=== PATIENT | male | born 1955 | race Caucasian/White ===

== ENCOUNTER → 2017-01-08 | Outpatient (CLI) | payer OTHER ==
[~2017-01-08] MED LIST: ASPI-983 PO; ASPI-999 PO; ASPI325T32 PO; ATOR80TA76 PO; CARV12.52 PO; CARV25TA PO; CARV3.12 PO; FURO-125 PO; LISI-556 PO; LISI10TA2 PO; OMG1KC PO; POTA10TA PO; TICA90TA PO
--- OUTSIDE RECORDS SUMMARY | 2017-01-08 11:59 | XMS REPORT | Continuity of Care Document ---
Author Author [facility] Organization [facility] Address Unknown Phone Unavailable Allergies Active Description Code Type Severity Reaction Onset Reported/Identified Relationship to Patient Clinical Status Yes amoxicillin [id number] Drug Allergy Unknown N/A 03/06/2016 Yes clavulanic acid [id number] Drug Allergy Unknown N/A 03/06/2016 Medications Problems Date Dx Coded Attending Type Code Diagnosis Diagnosed By 03/07/2016 TRINO CHAHAL MD Ot E66.9 OBESITY, UNSPECIFIED 03/07/2016 TRINO CHAHAL MD, Ot E78.5 HYPERLIPIDEMIA, UNSPECIFIED 03/07/2016 TRINO CHAHAL MD Ot F17.210 NICOTINE DEPENDENCE, CIGARETTES, UNCOMPL 03/07/2016 TRINO CHAHAL MD Ot I10 ESSENTIAL (PRIMARY) HYPERTENSION 03/07/2016 TRINO CHAHAL MD Ot I21.19 STEMI INVOLVING OTH CORONARY ARTERY OF I 03/07/2016 TRINO CHAHAL MD Ot I25.10 ATHSCL HEART DISEASE OF [place] CORONARY 03/07/2016 TRINO CHAHAL MD Ot I25.5 ISCHEMIC CARDIOMYOPATHY 03/07/2016 TRINO CHAHAL MD Ot I44.1 ATRIOVENTRICULAR BLOCK, SECOND DEGREE 03/07/2016 TRINO CHAHAL MD Ot I50.21 ACUTE SYSTOLIC (CONGESTIVE) HEART FAILUR 03/07/2016 TRINO CHAHAL MD Ot R00.1 BRADYCARDIA, UNSPECIFIED 03/07/2016 TRINO CHAHAL MD Ot R57.0 CARDIOGENIC SHOCK 03/07/2016 TRINO CHAHAL MD Ot Z68.30 BODY MASS INDEX (BMI) 30.0-30.9, ADULT 03/08/2016 TRINO CHAHAL MD Ot E66.9 OBESITY, UNSPECIFIED 03/08/2016 TRINO CHAHAL MD Ot E78.5 HYPERLIPIDEMIA, UNSPECIFIED 03/08/2016 TRINO CHAHAL MD Ot F17.210 NICOTINE DEPENDENCE, CIGARETTES, UNCOMPL 03/08/2016 TRINO CHAHAL MD Ot I10 ESSENTIAL (PRIMARY) HYPERTENSION 03/08/2016 TRINO CHAHAL MD Ot I21.19 STEMI INVOLVING OTH CORONARY ARTERY OF I 03/08/2016 TRINO CHAHAL MD Ot I25.10 ATHSCL HEART DISEASE OF [place] CORONARY 03/08/2016 TRINO CHAHAL MD Ot I25.5 ISCHEMIC CARDIOMYOPATHY 03/08/2016 TRINO CHAHAL MD Ot I44.1 ATRIOVENTRICULAR BLOCK, SECOND DEGREE 03/08/2016 TRINO CHAHAL MD Ot I50.21 ACUTE SYSTOLIC (CONGESTIVE) HEART FAILUR 03/08/2016 TRINO CHAHAL MD Ot R00.1 BRADYCARDIA, UNSPECIFIED 03/08/2016 TRINO CHAHAL MD Ot R57.0 CARDIOGENIC SHOCK 03/08/2016 TRINO CHAHAL MD Ot Z68.30 BODY MASS INDEX (BMI) 30.0-30.9, ADULT 03/08/2016 TRINO CHAHAL MD Ot E66.9 OBESITY, UNSPECIFIED 03/08/2016 TRINO CHAHAL MD Ot E78.5 HYPERLIPIDEMIA, UNSPECIFIED 03/08/2016 TRINO CHAHAL MD Ot F17.210 NICOTINE DEPENDENCE, CIGARETTES, UNCOMPL 03/08/2016 TRINO CHAHAL MD Ot I10 ESSENTIAL (PRIMARY) HYPERTENSION 03/08/2016 TRINO CHAHAL MD Ot I21.19 STEMI INVOLVING OTH CORONARY ARTERY OF I 03/08/2016 TRINO CHAHAL MD Ot I25.10 ATHSCL HEART DISEASE OF [place] CORONARY 03/08/2016 TRINO CHAHAL MD Ot I25.5 ISCHEMIC CARDIOMYOPATHY 03/08/2016 TRINO CHAHAL MD Ot I44.1 ATRIOVENTRICULAR BLOCK, SECOND DEGREE 03/08/2016 TRINO CHAHAL MD Ot I50.21 ACUTE SYSTOLIC (CONGESTIVE) HEART FAILUR 03/08/2016 TRINO CHAHAL MD Ot R00.1 BRADYCARDIA, UNSPECIFIED 03/08/2016 TRINO CHAHAL MD Ot R57.0 CARDIOGENIC SHOCK 03/08/2016 TRINO CHAHAL MD Ot R57.8 OTHER SHOCK 03/08/2016 TRINO CHAHAL MD Ot Z68.30 BODY MASS INDEX (BMI) 30.0-30.9, ADULT Procedures Code Description Performed By Performed On [id number] 03/06/2016 [id number] 03/06/2016 [id number] 03/06/2016 [id number] 03/06/2016 Results Encounters ACCT No. Visit Date/Time Discharge Status Pt. Type Provider Facility Loc./Unit Complaint [id number] 03/06/2016 07:53:00 2015 11:15:00 DIS Inpatient FELA SMITH, TRINO Murrell [facility] STEMI
[2017-01-08 12:37] LABS: ALANINE AMINOTRANSFERASE 27 U/L (0-55); ALBUMIN 4.3 G/DL (3.2-4.5); ANION GAP 8 MMOL/L (5-14); ASPARTATE AMINO TRANSFERASE 17 U/L (5-34); BILIRUBIN,TOTAL 0.6 MG/DL (0.1-1.0); BLOOD UREA NITROGEN 14 MG/DL (7-18); BUN/CREATININE RATIO 18; CARBON DIOXIDE 27 MMOL/L (21-32); CHLORIDE 103 MMOL/L (98-107); CHOLESTEROL 200 MG/DL (< 200); CREATININE SERUM 0.79 MG/DL (0.60-1.30); DIRECT LDL 149 MG/DL (1-129); GFR ESTIMATED > 60; GLUCOSE 98 MG/DL (70-105); POTASSIUM 4.2 MMOL/L (3.6-5.0); SODIUM 138 MMOL/L (135-145); TOTAL PROTEIN 7.1 G/DL (6.4-8.2); TRIGLYCERIDES 94 MG/DL (<150); VLDL CHOLESTEROL 19 MG/DL (5-40)
--- NOTE | 2017-01-08 14:56 | ECHOCARDIOGRAPHY REPORT ---
PROCEDURE PHYSICIAN: TRINO CHAHAL DATE OF PROCEDURE: 01/08/2017 TWO DIMENSIONAL ECHOCARDIOGRAM REPORT PRIMARY PHYSICIAN: OTHER PHYSICIAN: REFERRING PHYSICIAN: ORDERING PHYSICIAN: INDICATION FOR THE PROCEDURE: Congestive heart failure MEASUREMENTS DERIVED VALUES LV DIAMETER (LAX) NORMALS NORMALS Diastolic 5.6 (3.6-5.2) Eject. Fract. 40% (60%+/-6%) Systolic (2.3-3.9) Diastolic Vol. % Shortening (0.22-0.42) Systolic Vol. Aortic Root IVS THICKNESS Diastolic 1.1 (0.6-1.1) LVPW THICKNESS Diastolic 1.1 (0.6-1.1) LA DIAMETER Systolic 3.8 (2.1-3.7) FINDINGS: 1. Technical quality is good. 2. The left ventricle is dilated, hypokinesia was noted more pronounced involving the mid to apical anterior wall, true apex, anterolateral wall. Systolic function is reduced. Estimated ejection fraction 40%. 3. The left atrium is in the upper normal limit in size. 4. The right atrium and right ventricle are normal in size. No clot or thrombus were seen within the right side. 5. Mitral valve is normal in morphology with mild mitral regurgitation noted by color Doppler flow. No mitral valve prolapse. No mitral valve stenosis. 6. Aortic valve is trileaflet with normal opening and closing pattern. No significant aortic stenosis or regurgitation was seen. 7. Tricuspid valve is normal in morphology with mild tricuspid regurgitation noted by color Doppler flow. Doppler across tricuspid valve estimated pulmonary artery pressure of 15+ right atrial pressure. 8. Pulmonic valve is functioning normally. 9. No pericardial effusion. CONCLUSION: 1. Normal left ventricular size with mild to moderate hypokinesia involving the mid to apical anterior wall, true apex, anterolateral wall. Systolic function is reduced. Estimated ejection fraction 40%. 2. Left atrium is in the upper normal limit in size. 3. Mild mitral and tricuspid regurgitation. 4. Estimated pulmonary artery pressure of 20 to 25 mmHg. Job ID: [id number] Dictated Date: 01/08/2017 13:30:14 Director Information Date: 01/08/2017 14:51:53 / lona
== END ==
LOC: CARD 11:55
PROVIDERS: ATTEND Internal Medicine Cardiovascular Disease
DX: I50.1 Left ventricular failure, unspecified (principal); I25.10 Atherosclerotic heart disease of native coronary artery without angina pectoris; E78.2 Mixed hyperlipidemia; I21.3 ST elevation (STEMI) myocardial infarction of unspecified site
CPT/HCPCS: 36415; 80053; 80061; 93306

== ENCOUNTER 2017-02-17 12:16 | Outpatient (RCR) | payer OTHER | END 2017-05-18 | disposition home or self-care (01) | LOC: CARD 12:16 | PROVIDERS: ATTEND Internal Medicine Cardiovascular Disease | DX: R00.1 Bradycardia, unspecified (principal); I25.10 Atherosclerotic heart disease of native coronary artery without angina pectoris | CPT/HCPCS: 93225; 93226 ==

== ENCOUNTER → 2017-03-19 | Outpatient (CLI) | payer OTHER ==
[~2017-03-19] MED LIST changes: +CATHETER FLUSH 10 ML SYR IV PRN
[2017-03-19 13:14] VITALS: BP 110/65
--- NOTE | 2017-03-21 08:09 | STRESS TEST ---
DATE OF SERVICE: 03/19/2017 PROCEDURE: Exercise Myoview stress test report. Baseline heart rate is 70. Baseline blood pressure is 110/65. Baseline EKG is sinus rhythm with no ischemic changes. SUMMARY: The patient was injected with 9.56 mCi of technetium-99 Myoview and the resting images were obtained. Then, the patient started exercising with the baseline heart rate, blood pressure and EKG as mentioned above. At minute 6 and 15 seconds, the patient was injected with 29.5 mCi of technetium-99 Myoview. The patient was able to exercise for a total of 7 minutes and 15 seconds on standard John protocol achieving maximum heart rate of 141, which is 87% of maximum expected heart rate. With peak exercise level, the blood pressure was 182/75, EKG was showing nondiagnostic changes. During recovery, heart rate and blood pressure returned to baseline. EKG returned to baseline. The resting and stress images were reviewed and compared in the short axis, horizontal long axis and vertical long axis views. Review of the images showed total infarction of mid to apical anterior wall, true apex, the whole inferior wall and the inferolateral wall with no reversibility. SSS is 42, SDS 1, TID value 0.95. On the gated images, the left ventricle is dilated with [id number] hypokinesia involving the mid to apical anterior wall, true apex, the whole inferior wall and inferolateral wall, calculated ejection fraction of 39%. CONCLUSIONS: 1. Fair exercise tolerance, a total of 7 minutes 15 seconds on standard John protocol that is a 10.1 METS, achieving 87% of maximum expected heart rate. 2. Hypertensive response to exercise, returned to baseline during recovery. 3. Total infarction of the mid to apical anterior wall, true apex, the whole inferior wall and inferolateral wall with no reversibility. 4. Prominent left ventricle with hypokinesia involving the mid to apical anterior wall, true apex, the whole inferior wall and inferolateral wall with calculated ejection fraction of 39%. Job ID: [id number] DocumentID: [id number] Dictated Date: 03/19/2017 16:50:13 Tube Bender Date: 03/20/2017 08:56:53 Dictated By: TRINO CHAHAL MD
== END ==
LOC: CARD 12:05
PROVIDERS: ATTEND Internal Medicine Cardiovascular Disease
DX: I25.10 Atherosclerotic heart disease of native coronary artery without angina pectoris (principal); R07.9 Chest pain, unspecified; E78.2 Mixed hyperlipidemia; I51.7 Cardiomegaly; R00.1 Bradycardia, unspecified
CPT/HCPCS: 78452; 93017

== ENCOUNTER → 2017-05-07 | Outpatient (CLI) | payer OTHER ==
[~2017-05-07] MED LIST changes: -CATHETER FLUSH 10 ML SYR IV PRN
[2017-05-07 11:34] LABS: ALBUMIN 4.4 GM/DL (3.2-4.5); BILIRUBIN,DIRECT 0.3 MG/DL (0.0-0.3); BILIRUBIN,INDIRECT 0.4 MG/DL; BILIRUBIN,TOTAL 0.7 MG/DL (0.1-1.0); ICTERUS 0.7 (-100-1.9); TOTAL PROTEIN 7.6 GM/DL (6.4-8.2)
== END ==
LOC: LAB 10:57
PROVIDERS: ATTEND Physician Assistant
DX: E78.2 Mixed hyperlipidemia (principal)
CPT/HCPCS: 36415; 80061; 80076

== ENCOUNTER → 2017-12-15 | Outpatient (CLI) | payer SELFPAY ==
[2017-12-15 15:28] LABS: ALANINE AMINOTRANSFERASE 20 U/L (0-55); ALBUMIN 4.3 GM/DL (3.2-4.5); ALKALINE PHOSPHATASE 67 U/L (40-136); BILIRUBIN,TOTAL 0.7 MG/DL (0.1-1.0); BUN/CREATININE RATIO 18; CALCIUM 9.9 MG/DL (8.5-10.1); CARBON DIOXIDE 28 MMOL/L (21-32); CHLORIDE 100 MMOL/L (98-107); CHOLESTEROL 138 MG/DL (< 200); CREATININE SERUM 0.83 MG/DL (0.60-1.30); GFR ESTIMATED > 60; GLUCOSE 102 MG/DL (70-105); HDL CHOLESTEROL 34 MG/DL (40-60); POTASSIUM 4.4 MMOL/L (3.6-5.0); SODIUM 138 MMOL/L (135-145); TOTAL PROTEIN 7.8 GM/DL (6.4-8.2); TRIGLYCERIDES 121 MG/DL (<150); VLDL CHOLESTEROL 24 MG/DL (5-40)
== END ==
LOC: LAB 14:45
PROVIDERS: ATTEND Family Medicine
DX: I25.10 Atherosclerotic heart disease of native coronary artery without angina pectoris (principal); I50.9 Heart failure, unspecified; R07.9 Chest pain, unspecified; R06.09 Other forms of dyspnea; E78.2 Mixed hyperlipidemia; I34.0 Nonrheumatic mitral (valve) insufficiency; I07.1 Rheumatic tricuspid insufficiency
CPT/HCPCS: 36415; 80053; 80061

== ENCOUNTER 2019-09-09 21:55 | Emergency (ER) | payer SELFPAY ==
[~2019-09-09] VITALS: Ht 177.8 cm; Wt 96.8 kg
[2019-09-09] MEDS ORDERED: NS IV 1000 ML 1,000 ML IV ONE (22:12)
[2019-09-09 22:18] LABS: BASOPHILS % (AUTO) 0 % (0-10); EOSINOPHILS # (AUTO) 0.2 10^3/uL (0.0-0.3); EOSINOPHILS % (AUTO) 1 % (0-10); HEMATOCRIT 43 % (40-54); HEMOGLOBIN 14.4 G/DL (13.3-17.7); LYMPHOCYTES # (AUTO) 1.5 X 10^3 (1.0-4.0); LYMPHOCYTES % (AUTO) 11 % (12-44); MEAN CORPUSCULAR HEMOGLOBIN 30 PG (25-34); MEAN CORPUSCULAR HGB CONC 34 G/DL (32-36); MEAN CORPUSCULAR VOLUME 87 FL (80-99); MEAN PLATELET VOLUME 9.6 FL (7.4-10.4); MONOCYTES # (AUTO) 1.2 X 10^3 (0.0-1.0); MONOCYTES % (AUTO) 9 % (0-12); NEUTROPHILS # (AUTO) 10.6 X 10^3 (1.8-7.8); NEUTROPHILS % (AUTO) 79 % (42-75); PLATELET COUNT 320 10^3/uL (130-400); RED CELL DISTRIBUTION WIDTH 13.3 % (10.0-14.5); WHITE BLOOD COUNT 13.5 10^3/uL (4.3-11.0)
[2019-09-09 22:28] LABS: BILIRUBIN,URINE NEGATIVE (NEGATIVE); COLOR,URINE YELLOW; GLUCOSE, URINE (UA) NEGATIVE (NEGATIVE); KETONES,URINE NEGATIVE (NEGATIVE); LEUKOCYTE ESTERASE ,URINE 1+ (NEGATIVE); NITRITE,URINE NEGATIVE (NEGATIVE); PH,URINE 5 (5-9); PROTEIN,URINE 2+ (NEGATIVE)
[2019-09-09 22:37] LABS: ALANINE AMINOTRANSFERASE 22 U/L (0-55); ALBUMIN 3.6 GM/DL (3.2-4.5); ALKALINE PHOSPHATASE 121 U/L (40-136); BILIRUBIN,TOTAL 0.9 MG/DL (0.1-1.0); BUN/CREATININE RATIO 13; CALCIUM 9.2 MG/DL (8.5-10.1); CARBON DIOXIDE 23 MMOL/L (21-32); CHLORIDE 98 MMOL/L (98-107); CREATININE SERUM 0.84 MG/DL (0.60-1.30); GFR ESTIMATED > 60; GLUCOSE 104 MG/DL (70-105); LIPASE 20 U/L (8-78); MAGNESIUM 1.9 MG/DL (1.6-2.4); POTASSIUM 3.9 MMOL/L (3.6-5.0); SODIUM 136 MMOL/L (135-145); TOTAL PROTEIN 7.5 GM/DL (6.4-8.2)
[2019-09-09 22:39] LABS: BACTERIA,URINE FEW /HPF
--- NOTE | 2019-09-09 22:39 | ED Abdominal Pain ---
General Chief Complaint: Abdominal/GI Problems Stated Complaint: LOWER ABD PAIN, PELVIC PAIN Nursing Triage Note: lower abdominal pain, n/v/d Sepsis Screen: No Definite Risk Source of Information: Patient Exam Limitations: No Limitations History of Present Illness Date Seen by Provider: Sep 09, 2019 Time Seen by Provider: 22:02 Initial Comments This 63-year-old gentleman presents to the emergency room with primary complaint of lower abdominal pain. He became ill about 12 days ago with nausea, vomiting, and diarrhea. A day or 2 later he developed chills and subjective fever. He has continued to have some abdominal discomfort since then. He has also noted a darker color to his urine. He is mildly tachycardic on arrival but afebrile. He states the pain is across the lower abdomen in the pelvic region and radiates a little bit generally to the scrotal region. He does have bilateral inguinal hernias and states the hernia on the right has increased in size over the past week or two due to vomiting. The hernias are easily reducible and not tender to palpation. He denies any respiratory symptoms. He has had normal bowel movements the past 2 days. He denies any hematochezia. He denies dysuria or hematuria or significant hesitancy. He is taking probiotics and ibuprofen to control his symptoms. Allergies and Home Medications Allergies Coded Allergies: amoxicillin (Verified Allergy, Unknown, 03/06/16) clavulanic acid (Verified Allergy, Unknown, 03/06/16) ticagrelor (Verified Allergy, Unknown, 09/09/19) Home Medications Aspirin 81 Mg Tablet.dr, 81 MG PO DAILY Prescribed by: TRINO CHAHAL on 03/08/16926 Atorvastatin Calcium 80 Mg Tablet, 80 MG PO HS Prescribed by: TRINO CHAHAL on 03/08/16926 Carvedilol 3.125 Mg Tablet, 3.125 MG PO BID Prescribed by: TRINO CHAHAL on 03/08/16926 Furosemide 20 Mg Tablet, 20 MG PO DAILY PRN PRN for edema Prescribed by: TRINO CHAHAL on 03/08/16926 Lisinopril 10 Mg Tablet, 5 MG PO DAILY, (Reported) LAST FILLED #90 8-17-15 TAKES 1/2 (10MG) TABLET [place] 3 Polyunsat Fatty Acids 1,000 Mg Cap, 1,000 MG PO BID WITH MEALS Prescribed by: TRINO CHAHAL on 03/08/16926 Potassium Chloride 10 Meq Tablet.er, 10 MEQ PO DAILY PRN for with lasix Prescribed by: TIRNO CHAHAL on 03/08/16926 Patient Home Medication List Home Medication List Reviewed: Yes Review of Systems Review of Systems Constitutional: see HPI EENTM: No Symptoms Reported Respiratory: No Symptoms Reported Cardiovascular: No Symptoms Reported Gastrointestinal: See HPI Genitourinary: See HPI Musculoskeletal: no symptoms reported Skin: no symptoms reported Psychiatric/Neurological: No Symptoms Reported Endocrine: No Symptoms Reported Hematologic/Lymphatic: No Symptoms Reported Past Mmgljph-Nvvuoq-Messzt Hx Patient Social History Alcohol Use: Occasionally Uses Recreational Drug Use: No Smoking Status: Current Everyday Smoker Type Used: Cigarettes 2nd Hand Smoke Exposure: Yes Recent Foreign Travel: No Contact w/Someone Who Travel: No Recent Infectious Disease Expo: No Recent Hopitalizations: No Physical Abuse: No Sexual Abuse: No Mistreated: No Fear: No Immunizations Up To Date Tetanus Booster (TDap): Unknown Seasonal Allergies Seasonal Allergies: No Past Medical History Surgeries: Yes Coronary Stent Respiratory: Yes COPD Cardiac: Yes Coronary Artery Disease, Heart Attack, High Cholesterol, Hypertension Neurological: No Reproductive Disorders: No Sexually Transmitted Disease: No HIV/AIDS: No Genitourinary: No Gastrointestinal: Yes Abdominal Hernia (bilateral inguinal hernias) Musculoskeletal: No Endocrine: No HEENT: No Cancer: No Psychosocial: No Integumentary: No Blood Disorders: No Adverse Reaction/Blood Tranf: No Family Medical History Diabetes mellitus G8 SISTER Myocardial infarction 19 FATHER 19 MOTHER Physical Exam Vital Signs Vital Signs - First Documented 09/09/19 21:59 Temp 35.8 Pulse 112 Resp 18 B/P (MAP) 151/88 (109) Pulse Ox 98 O2 Delivery Room Air Capillary Refill : Less Than 3 Seconds Height/Weight/BMI Height: 5'10.00" Weight: 213lbs. 8.0oz. 96.993722tn; 30.00 BMI Method:Stated General Appearance: WD/WN, no apparent distress HEENT: PERRL/EOMI, normal ENT inspection, other (mucous membranes somewhat dry) Neck: normal inspection Respiratory: lungs clear, normal breath sounds, no respiratory distress, no accessory muscle use Cardiovascular: no edema, no murmur, tachycardia Gastrointestinal: normal bowel sounds, soft; No distended; tenderness (minimal over the pelvic region), hernia (bilateral reducible nontender inguinal hernias, right greater than left) Extremities: normal inspection, no pedal edema Male: normal genitalia, testicular tenderness (minimal, bilateral. No scrotal edema, heat, or erythema. Testicles are normal to inspection) Neurologic/Psychiatric: bleacher lard II-XII nml as tested, no motor/sensory deficits, alert, normal mood/affect, oriented x 3 Skin: normal color, warm/dry Focused Exam Lactate Level 09/09/19 11:05: Lactic Acid Level 0.96 Lactic Acid Level Laboratory Tests Test 09/09/19 11:05 Lactic Acid Level 0.96 MMOL/L (0.50-2.00) Progress/Results/Core Measures Results/Orders Lab Results Laboratory Tests Test 09/09/19 11:05 09/09/19 22:00 09/09/19 22:18 Range/Units Lactic Acid Level 0.96 0.50-2.00 MMOL/L White Blood Count 13.5 H 4.3-11.0 10^3/uL Red Blood Count 4.88 4.35-5.85 10^6/uL Hemoglobin 14.4 13.3-17.7 G/DL Hematocrit 43 40-54 % Mean Corpuscular Volume 87 80-99 FL Mean Corpuscular Hemoglobin 30 25-34 PG Mean Corpuscular Hemoglobin Concent 34 32-36 G/DL Red Cell Distribution Width 13.3 10.0-14.5 % Platelet Count 320 130-400 10^3/uL Mean Platelet Volume 9.6 7.4-10.4 FL Neutrophils (%) (Auto) 79 H 42-75 % Lymphocytes (%) (Auto) 11 L 12-44 % Monocytes (%) (Auto) 9 0-12 % Eosinophils (%) (Auto) 1 0-10 % Basophils (%) (Auto) 0 0-10 % Neutrophils # (Auto) 10.6 H 1.8-7.8 X 10^3 Lymphocytes # (Auto) 1.5 1.0-4.0 X 10^3 Monocytes # (Auto) 1.2 H 0.0-1.0 X 10^3 Eosinophils # (Auto) 0.2 0.0-0.3 10^3/uL Basophils # (Auto) 0.0 0.0-0.1 10^3/uL Sodium Level 136 135-145 MMOL/L Potassium Level 3.9 3.6-5.0 MMOL/L Chloride Level 98 98-107 MMOL/L Carbon Dioxide Level 23 21-32 MMOL/L Anion Gap 15 H 5-14 MMOL/L Blood Urea Nitrogen 11 7-18 MG/DL Creatinine 0.84 0.60-1.30 MG/DL Estimat Glomerular Filtration Rate > 60 BUN/Creatinine Ratio 13 Glucose Level 104 70-105 MG/DL Calcium Level 9.2 8.5-10.1 MG/DL Corrected Calcium 9.5 8.5-10.1 MG/DL Magnesium Level 1.9 1.6-2.4 MG/DL Total Bilirubin 0.9 0.1-1.0 MG/DL Aspartate Amino Transf (AST/SGOT) 11 5-34 U/L Alanine Aminotransferase (ALT/SGPT) 22 0-55 U/L Alkaline Phosphatase 121 40-136 U/L C-Reactive Protein High Sensitivity 15.97 H 0.00-0.50 MG/DL Total Protein 7.5 6.4-8.2 GM/DL Albumin 3.6 3.2-4.5 GM/DL Lipase 20 8-78 U/L Urine Color YELLOW Urine Clarity SLIGHTLY CLOUDY Urine pH 5 5-9 Urine Specific [place] 1.020 1.016-1.022 Urine Protein 2+ H NEGATIVE Urine Glucose (UA) NEGATIVE NEGATIVE Urine Ketones NEGATIVE NEGATIVE Urine Nitrite NEGATIVE NEGATIVE Urine Bilirubin NEGATIVE NEGATIVE Urine Urobilinogen 1 NORMAL MG/DL Urine Leukocyte Esterase 1+ H NEGATIVE Urine RBC (Auto) 4+ H NEGATIVE Urine RBC 2-5 H /HPF Urine WBC 5-10 H /HPF Urine Crystals NONE /LPF Urine Bacteria FEW H /HPF Urine Casts PRESENT /LPF Urine Hyaline Casts 2-5 H /LPF Urine Mucus MODERATE H /LPF Urine Culture Indicated YES Micro Results Microbiology 09/09/19 Influenza Types A,B Antigen (JAVAD) - Final, Complete My Orders Orders - STEVE GRIMALDO MD Ua Culture If Indicated (09/09/19 22:02) Cbc With Automated Diff (09/09/19 22:12) Comprehensive Metabolic Panel (09/09/19 22:12) Hs C Reactive Protein (09/09/19 22:12) Lipase (09/09/19 22:12) Magnesium (09/09/19 22:12) Ed Iv/Invasive Line Start (09/09/19 22:12) Ns Iv 1000 Ml (Sodium Chloride 0.9%) (09/09/19 22:12) Influenza A And B Antigens (09/09/19 22:33) Urine Culture (09/09/19 22:18) Blood Culture (09/09/19 22:51) Vital Signs Adult Sepsis Patie Q15M (09/09/19 22:51) Remove Rings In Anticipation O (09/09/19 22:51) Lactic Acid Analyzer (09/09/19 22:51) Ct Abdomen/Pelvis W (09/09/19 22:59) Levofloxacin 750 Mg/150 Ml Iv (Levaquin (09/09/19 23:15) Iohexol Injection (Omnipaque 350 Mg/Ml 1 (09/09/19 23:15) Received Contrast (Hold Metformin- Contr (09/09/19 23:15) Ns (Ivpb) (Sodium Chloride 0.9% Ivpb Bag (09/09/19 23:15) Medications Given in ED Current Medications Medications Dose Ordered Sig/Cesar Route Start Time Stop Time Status Last Admin Dose Admin Iohexol 100 ml ONCE ONCE IV 09/09/19 23:15 09/09/19 23:16 DC 09/09/19 23:48 100 ML Levofloxacin/ Dextrose 150 ml @ 100 mls/hr ONCE ONCE IV 09/09/19 23:15 09/10/19 00:44 09/09/19 23:38 100 MLS/HR Sodium Chloride 100 ml ONCE ONCE IV 09/09/19 23:15 09/09/19 23:16 DC 09/09/19 23:49 80 ML Sodium Chloride 1,000 ml @ 0 mls/hr Q0M ONCE IV 09/09/19 22:12 09/09/19 22:13 DC 09/09/19 22:21 0 MLS/HR Vital Signs/I&O 09/09/19 21:59 Temp 35.8 Pulse 112 Resp 18 B/P (MAP) 151/88 (109) Pulse Ox 98 O2 Delivery Room Air 09/10/19 00:00 Intake Total 1000 ml Balance 1000 ml Blood Pressure Mean: 109 Progress Progress Note #1: Time: 22:39 Progress Note Patient was seen and examined. Lab work is in progress. A liter of IV fluid is being infused. He declines any treatment for pain or nausea at this time. Progress Note #2: Time: 23:01 Progress Note Patient is noted to have tachycardia, leukocytosis, and a significant elevation in CRP along with evidence of urinary tract infection. Patient therefore appears septic. We will draw blood cultures and lactic acid. Antibiotic therapy with Levaquin will be initiated due to patient's penicillin allergy. CT scan is being obtained for further evaluation. Patient has multiple variables that impact the decision for CT including possibility of ureteral stone, bilateral inguinal hernias, and persistent abdominal symptoms in the presence of possible sepsis. Patient and his were involved in the decision-making to proceed with CT scan. Progress Note #3: Time: 00:[address] scan was viewed by me and [employer] report reviewed. There was mural thickening and diverticuli noted in multiple colonic regions. This was consistent with colitis or diverticulitis. Additionally, there was a 1.4 cm nod ular area in the infrahilar region of the right lower lobe. Dedicated CT at some point was recommended. Patient would like to make sure his financial assistance and goes through before pursuing this further. He is to discuss it with his primary care provider. He is currently finishing Levaquin by IV route. He will additionally be given Flagyl orally. He was offered admission due to leukocytosis and elevated CRP in the presence of infection with UTI and probable diverticulitis. 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 However, he declines. He commits to returning to the hospital if symptoms worsen. Diagnostic Imaging Diagonstic Imaging: CT Plain Films/CT/US/NM/MRI: abdomen, pelvis Comments CT abdomen and pelvis was viewed by me. [employer] report reviewed. There is mural thickening and inflammatory changes around the left upper quadrant involving the splenic flexure of the colon as well as diverticular disease there is an additional area of inflammation around the sigmoid colon with mural thickening and marked diverticular disease. These findings suggest colitis and/or diverticulitis. There was a 1.4 cm nodular density in the right lower lobe infrahilar region. Dedicated CT chest is recommended. Departure Impression Primary Impression: Diverticulitis of intestine Qualified Codes: K57.32 - Diverticulitis of large intestine without perforation or abscess without bleeding Additional Impression: Urinary tract infection Qualified Codes: N39.0 - Urinary tract infection, site not specified Disposition: HOME, SELF-CARE Condition: Improved Departure-Patient Inst. Decision time for Depature: 00:25 Referrals: NAHUN DAMON MD (PCP/Family) Primary Care Physician Patient Instructions: Diverticulitis, Urinary Tract Infections in Adults Add. Discharge Instructions: Drink plenty of clear liquids and eat a low residual diet until symptoms resolve. Take Tylenol (acetaminophen) up to 1000 mg every 6 hours as needed for primary pain control. Add in ibuprofen for pain not controlled by Tylenol. Ibuprofen may be used for temporary relief of uncontrolled pain but should not be used for long-term treatment of pain. Return to care promptly if you have worsening symptoms including escalating pain, temperature over 100, uncontrolled vomiting or diarrhea, rectal bleeding, etc. Please follow-up with your primary care provider next week to review urine cultures and have a checkup. All discharge instructions reviewed with patient and/or family. Voiced understanding. Scripts Metronidazole (Flagyl) 500 Mg Tablet 500 MG PO TID, #20 TAB Prov: STEVE GRIMALDO MD 09/10/19 Ciprofloxacin HCl (Ciprofloxacin HCl) 500 Mg Tablet 500 MG PO BID, #14 TAB Prov: STEVE GRIMALDO MD 09/10/19 STEVE GRIMALDO MD Sep 09, 2019 22:39
[2019-09-09 22:41] LABS: CLARITY,URINE SLIGHTLY CLOUDY
[2019-09-09] MEDS: LEVOFLOXACIN 750 MG/150 ML IV 150 ML IV ONE ×2 (23:15→23:38)
[2019-09-09] MEDS ORDERED: NS 100 ML (IVPB) BAG IV ONE (23:15)
[2019-09-09] MEDS ORDERED: IOHEXOL 350 MG/ML 100 ML (OMNIPAQUE 350) VIAL IV ONE (23:15)
[2019-09-09] MEDS ORDERED: HOLD METFORMIN - RECEIVED CONTRAST 20 ML VIAL IV SCH (23:15)
[2019-09-10] MEDS ORDERED: metroNIDAZOLE 500 MG (FLAGYL) TAB PO ONE (00:30)
[2019-09-10] MEDS ORDERED: METR500T PO (00:31)
[2019-09-10] MEDS ORDERED: CIPR500T4 PO (00:31)
[2019-09-10 01:08] VITALS: BP 120/75
--- NOTE | 2019-09-10 07:27 | Diagnostic Imaging Report ---
PROCEDURE: CT abdomen and pelvis with contrast. TECHNIQUE: Multiple contiguous axial images were obtained through the abdomen and pelvis after administration of intravenous contrast. Auto Exposure Controls were utilized during the CT exam to meet ALARA standards for radiation dose reduction. INDICATION: Inferior abdominal pain. COMPARISON: None available. FINDINGS: There is mild subsegmental dependent atelectasis in both lower lobes. There is a partially visualized right infrahilar nodular density which measures at least 1.5 cm (image 1 series 2). A separate 9 mm nodular density is demonstrated just inferior to this (image 4 series 2) The visualized heart is normal in size. Coronary artery calcifications are demonstrated. The liver, spleen, pancreas, and adrenal glands are unremarkable. Gallbladder is contracted, limiting evaluation. No calcified gallstones or pericholecystic fluid is demonstrated. There is no biliary or pancreatic ductal dilatation demonstrated. The kidneys are symmetric in size and demonstrate normal enhancement. There is a partially exophytic low-attenuation lesion projecting inferiorly off of the lower pole of the left kidney which measures up to 1.6 cm in diameter. This demonstrates internal attenuation of approximately 30 Hounsfield units. There is a cyst in the anterior interpolar region of the left kidney which measures 1.3 cm. Additional subcentimeter foci of low-attenuation are too small to characterize but also likely represent cysts. There is no renal calculus or hydronephrosis on either side. The visualized ureters are normal. The stomach and duodenum are normal. The small bowel and colon are normal in course and caliber, without evidence of obstruction. There is moderate colonic diverticulosis. There is marked mural thickening involving the distal transverse and proximal descending colon in the region of the splenic flexure. There is moderate surrounding pericolonic inflammatory change in this region. There is also suggestion of mild mural thickening involving the proximal sigmoid colon, suggestion of mild pericolonic inflammatory change also noted in this region. There is no pneumoperitoneum. There is mild thickening of the left lateral conal fascia, likely representing trace fluid related to the colonic findings. There is no focal/loculated rim-enhancing collection. Mildly prominent scattered upper abdominal mesenteric and retroperitoneal lymph nodes are likely reactive in nature. No sandra lymphadenopathy. There is moderate calcified and noncalcified atherosclerotic plaque involving the abdominal aorta, without aneurysmal dilatation. There is no evidence of venous thrombosis. The bladder is normal. The prostate gland is normal in size. The abdominal wall is unremarkable. Multilevel degenerative changes involve the spine. No acute osseous abnormality is appreciated. IMPRESSION: Moderate mural thickening and pericolonic inflammatory change involving the splenic flexure. There is also suggestion of mild mural thickening involving the proximal sigmoid colon. There is moderate diverticular disease of the colon, and findings may reflect an acute diverticulitis or possibly an infectious/inflammatory colitis. There is no evidence of pneumoperitoneum or abscess formation. Exophytic low-attenuation projecting inferiorly off of the lower pole of left kidney. This does not measure simple fluid in attenuation and is indeterminate based on this exam. This may represent a complicated cyst given the appearance of an additional simple cyst and other likely simple cysts, however, is indeterminate. Further characterization of this finding is recommended with renal protocol CT/MRI on a nonemergent basis. Alternatively renal ultrasound may serve as an initial study to further characterize this finding. Pulmonary nodules in the right infrahilar region measuring 15 and 9 mm. Short interval followup with dedicated chest CT is recommended for further evaluation. Findings are in agreement with initial teleradiology report. Additional finding involving the left kidney was discussed with the [facility] followup nurse on 09/10/2019 at 7:25 a.m. Dictated by: Dictated on workstation # [id number]
== END 2019-09-10 01:08 | disposition home or self-care (01) ==
LOC: EDUNIT# 21:55 → ER 21:57
DX: K57.32 Diverticulitis of large intestine without perforation or abscess without bleeding (principal); N39.0 Urinary tract infection, site not specified; J44.9 Chronic obstructive pulmonary disease, unspecified; I10 Essential (primary) hypertension; E78.00 Pure hypercholesterolemia, unspecified; I25.2 Old myocardial infarction; I25.10 Atherosclerotic heart disease of native coronary artery without angina pectoris; F17.210 Nicotine dependence, cigarettes, uncomplicated; Z79.82 Long term (current) use of aspirin; Z95.5 Presence of coronary angioplasty implant and graft; Z88.0 Allergy status to penicillin; Z88.1 Allergy status to other antibiotic agents; Z88.8 Allergy status to other drugs, medicaments and biological substances; Z82.49 Family history of ischemic heart disease and other diseases of the circulatory system
CPT/HCPCS: 36415; 74177; 80053; 81000; 83605; 83690; 83735; 85025; 86141; 87040; 87077; 87088; 87186; 87804; 96365

== ENCOUNTER 2023-03-24 00:11 | Inpatient (IN) | payer MEDICARE ==
[~2023-03-24] VITALS: Ht 177.8 cm; Wt 95.3 kg
[~2023-03-24 00:11] MED LIST changes: +ASPI-1238 PO; -ASPI-983 PO; +CIPR500T5 PO; -LISI-556 PO; -LISI10TA2 PO; +LISI10TA25 PO; +LISI5TAB20 PO; +METR500T PO
[2023-03-24 00:29] LABS: BASOPHILS # (AUTO) 0.1 10^3/uL (0.0-0.1); BASOPHILS % (AUTO) 1 % (0-10); EOSINOPHILS # (AUTO) 0.1 10^3/uL (0.0-0.3); EOSINOPHILS % (AUTO) 1 % (0-10); HEMATOCRIT 48 % (40-54); HEMOGLOBIN 15.7 g/dL (13.3-17.7); LYMPHOCYTES # (AUTO) 3.1 10^3/uL (1.0-4.0); LYMPHOCYTES % (AUTO) 29 % (12-44); MEAN CORPUSCULAR HEMOGLOBIN 30 pg (25-34); MEAN CORPUSCULAR HGB CONC 33 g/dL (32-36); MEAN CORPUSCULAR VOLUME 90 fL (80-99); MEAN PLATELET VOLUME 10.5 fL (9.0-12.2); MONOCYTES % (AUTO) 10 % (0-12); NEUTROPHILS # (AUTO) 6.3 10^3/uL (1.8-7.8); NEUTROPHILS % (AUTO) 59 % (42-75); PLATELET COUNT 235 10^3/uL (130-400); WHITE BLOOD COUNT 10.7 10^3/uL (4.3-11.0)
[2023-03-24] MEDS ORDERED: ENOXAPARIN 100 MG/1 ML (LOVENOX) SYR SC ONE (00:30)
[2023-03-24] MEDS ORDERED: ASPIRIN 81 MG CHEW (CHILDREN'S ASA) PO ONE (00:30)
[2023-03-24] MEDS ORDERED: NS IV 1000 ML 1,000 ML IV SCH (00:30)
[2023-03-24] MEDS ORDERED: dilTIAZem DRIP PRE-MIX 125 ML IV SCH (00:30)
[2023-03-24 00:46] LABS: INR 1.2 (0.8-1.4); PROTHROMBIN TIME PATIENT 15.6 SEC (12.2-14.7)
[2023-03-24 00:53] LABS: ALBUMIN 4.3 GM/DL (3.2-4.5); BILIRUBIN,TOTAL 1.4 MG/DL (0.1-1.0); CALCIUM 9.1 MG/DL (8.5-10.1); CREATININE SERUM 0.96 MG/DL (0.60-1.30); TOTAL PROTEIN 7.3 GM/DL (6.4-8.2)
[2023-03-24 01:00] LABS: CREATINE KINASE MB 2.5 NG/ML (<6.6)
--- NOTE | 2023-03-24 01:11 | ED Cardiac General ---
History of Present Illness General Chief Complaint: Chest Pain Stated Complaint: SOB,LIGHT HEADED,RAPID HEART RATE,CP Nursing Triage Note: SOA X3 WEEKS, WORSE X4 DAYS, LEFT CHEST PRESSURE SINCE 1900. Source: patient (DIFFICULT AND LIMITED HISTORIAN), old records History of Present Illness Date Seen by Provider: March 24, 2023 Time Seen by Provider: 00:16 Initial Comments PT ARRIVES VIA POV FROM HOME WITH C/O CHEST PAIN -LEFT UPPER CHEST--STATES THIS IS THE SAME AREA THAT HE HAD PAIN WITH HIS PRIOR CO, BUT THIS PAIN IS NOT BAD. RATES PAIN 1-2 / 10 C/O RAPID HEART RATE--UP TO 160 C/O SHORTNESS OF BREATH SYMPTOMS BEGAN AROUND 1900 TONIGHT HE HAS BEEN FEELING SHORT OF BREATH X 3 WEEKS, WORSE X 4 DAYS HE HAS LASIX THAT HE TAKES "WHEN HE THINKS HE NEEDS IT"--HE HAS NOT TAKEN IT RECENTLY NO SIGNIFICANT LEG SWELLING PT HAS HAD PRIOR CO'S X 2. HE HAS HAD STENTING X 2 TO LAD AROUND 2005--NEVER FOLLOWED UP WITH ANYONE AFTER THAT. HE THEN HAD A STEMI WITH CARDIOGENIC SHOCK 03/06/2016 AND HAD STENTS X 2 TO LEFT CIRCUMFLEX. HE STATES HE HAD V-TACH WITH ONE OF THEM. HE DOES NOT HAVE A PACEMAKER OR DEFIBRILLATOR. HE IS NOT ON ANY ANTIARRHYTHMICS HE HAS NOT FOLLOWED UP WITH CARDIOLOGY IN 6 YEARS, PER HE HAS NOT FOLLOWED UP WITH [facility] OR ANY DR IN OVER 3 YEARS HE TAKES 81 MG ASPIRIN, AND NO OTHER BLOOD THINNERS. EXCEPT FOR OCCASIONAL LASIX USE, HE DOES NOT TAKE ANY OTHER MEDICATIONS. HE CONTINUES TO SMOKE 1 PPD. HE STATES HE HAS NEVER BEEN DX WITH COPD OR ASTHMA OR EMPHYSEMA, BUT STATES "I PROBABLY HAVE IT" HE HAS NEVER BEEN ON HOME O2 PT IS A FORMER RN. ASA po SUPERVISOR PREPRESS: No Allergies and Home Medications Allergies Coded Allergies: amoxicillin (Verified Allergy, Unknown, 03/06/16) clavulanic acid (Verified Allergy, Unknown, 03/06/16) ticagrelor (Verified Allergy, Unknown, 09/09/19) Patient Home Medication List Home Medication List Reviewed: Yes Aspirin (Aspirin EC) 81 Mg Tablet., 81 MG PO DAILY Prescribed by: TRINO CHAHAL on 03/08/16 0927 Atorvastatin Calcium (Atorvastatin Calcium) 80 Mg Tablet, 80 MG PO HS Prescribed by: TRINO CHAHAL on 03/08/16926 Carvedilol (Coreg) 3.125 Mg Tablet, 3.125 MG PO BID Prescribed by: TRINO CHAHAL on 03/08/16926 Ciprofloxacin HCl (Ciprofloxacin HCl) 500 Mg Tablet, 500 MG PO BID Prescribed by: STEVE CUMMINS on 09/10/1930 Furosemide (Lasix) 20 Mg Tablet, 20 MG PO DAILY PRN PRN for edema Prescribed by: TRINO CHAHAL on 03/08/16926 Lisinopril (Lisinopril) 10 Mg Tablet, 5 MG PO DAILY, (Reported) Entered as Reported by: MAYUR MCNAMARA on 03/06/16945 Metronidazole (Flagyl) 500 Mg Tablet, 500 MG PO TID Prescribed by: STEVE CUMMINS on 09/10/1930 [place] 3 Polyunsat Fatty Acids (Fish Oil 1,000 mg Capsule) 1,000 Mg Cap, 1,000 MG PO BID WITH MEALS Prescribed by: TRINO CHAHAL on 03/08/16926 Potassium Chloride (K-Tab ER) 10 Meq Tablet.er, 10 MEQ PO DAILY PRN for with lasix Prescribed by: TRINO CHAHAL on 03/08/16926 Review of Systems Review of Systems Constitutional: no symptoms reported Respiratory: See HPI, Orthopnea, Shortness of Air Cardiovascular: See HPI, Chest Pain, Irregular Heart Rate, Palpitations Gastrointestinal: No Symptoms Reported Genitourinary: No Symptoms Reported Musculoskeletal: no symptoms reported Skin: no symptoms reported Psychiatric/Neurological: No Symptoms Reported Endocrine: No Symptoms Reported Past Arpaofx-Klfoxq-Eebhuf Hx Patient Social History Tobacco Use?: Yes Tobacco type used: Cigarettes Smoking Status: Current Everyday Smoker Substance use?: No Alcohol Use?: No Pt feels they are or have been: No Immunizations Up To Date Tetanus Booster (TDap): Unknown First/Initial COVID19 Vaccinat: NA Seasonal Allergies Seasonal Allergies: No Past Medical History Surgery/Hospitalization HX: CO, STENTS, HLD, HTN Surgeries: Yes Cardiac, Coronary Stent Respiratory: Yes COPD Cardiac: Yes (STENTS X 4) Coronary Artery Disease, Heart Attack, High Cholesterol, Hypertension Neurological: No Reproductive Disorders: No Sexually Transmitted Disease: No HIV/AIDS: No Genitourinary: No Gastrointestinal: Yes Abdominal Hernia Musculoskeletal: No Endocrine: No HEENT: No Cancer: No Psychosocial: No Integumentary: No Blood Disorders: No Adverse Reaction/Blood Tranf: No Family Medical History Diabetes mellitus G8 SISTER Myocardial infarction 19 FATHER 19 MOTHER SOCIAL HISTORY: -SMOKES 1 PPD -DENIES ETOH USE -DENIES DRUG USE CO'S X 2 WITH CARDIAC CATHS X 2 FIRST CO AROUND 2006, WITH STENTS X 2 TO LAD SECOND CO / STEMI WITH CARDIOGENIC SHOCK 03/06/2016: CARDIAC CATH 03/06/[address] CHAHAL CONCLUSION: 1. Acute ST elevation myocardial infarction with heavy thrombus burden and total occlusion of the large dominant proper circumflex artery. Successful emergency angioplasty and then stent deployment using 2.5 x 20 mm Promus Premier stent, expanded to 2.65 mm with excellent results. Door to balloon time was 65 minutes. Door to needle time was 58 minutes. 2. Severe stenosis at the ostial and proximal left circumflex artery with deployment of 2.25 x 20 mm Promus Premier stent, expanded to 2.5 mm with excellent results. 3. Patent stents in the proximal and mid LAD, 50% ostial LAD stenosis. 4. Mild disease in a small, nondominant right coronary artery. 5. Dilated left ventricle with severe inferior wall hypokinesia with estimated ejection fraction is 40%. Physical Exam Vital Signs Vital Signs - First Documented 03/24/23 00:15 Temp 36.5 Pulse 135 Resp 22 B/P (MAP) 133/102 (112) Pulse Ox 93 O2 Delivery Nasal Cannula O2 Flow Rate 2.00 Capillary Refill : Less Than 3 Seconds Height, Weight, BMI Height: 5'10.00" Weight: 213lbs. 8.0oz. 96.252193hl; 31.00 BMI Method:Stated General Appearance: WD/WN, Other (PT LAUGHING AND TRYING TO MAKE JOKES, DIFFICULT TO KEEP ON SUBJECT. ) HEENT: PERRL/EOMI Neck: Normal Inspection Respiratory: No Accessory Muscle Use, No Respiratory Distress, Other (RALES IN BASES, AND EXPIRATORY WHEEZING BILATERALLY) Cardiovascular: No JVD, Normal Peripheral Pulses, Irregularly Irregular, Tachycardia Gastrointestinal: Non Tender, Soft Extremity: Normal Capillary Refill, Non Tender, No Calf Tenderness, Pedal Edema (TRACE BILATERALLY) Neurologic/Psychiatric: Alert, Oriented x3, No Motor/Sensory Deficits, Normal M ood/Affect, pre sales technical consultant II-XII Norm as Tested Skin: Normal Color, Warm/Dry Progress/Results/Core Measures Results/Orders Lab Results Laboratory Tests Test 03/24/23 00:17 03/24/23 01:27 Range/Units White Blood Count 10.7 4.3-11.0 10^3/uL Red Blood Count 5.30 4.30-5.52 10^6/uL Hemoglobin 15.7 13.3-17.7 g/dL Hematocrit 48 40-54 % Mean Corpuscular Volume 90 80-99 fL Mean Corpuscular Hemoglobin 30 25-34 pg Mean Corpuscular Hemoglobin Concent 33 32-36 g/dL Red Cell Distribution Width 13.7 10.0-14.5 % Platelet Count 235 130-400 10^3/uL Mean Platelet Volume 10.5 9.0-12.2 fL Immature Granulocyte % (Auto) 0 % Neutrophils (%) (Auto) 59 42-75 % Lymphocytes (%) (Auto) 29 12-44 % Monocytes (%) (Auto) 10 0-12 % Eosinophils (%) (Auto) 1 0-10 % Basophils (%) (Auto) 1 0-10 % Neutrophils # (Auto) 6.3 1.8-7.8 10^3/uL Lymphocytes # (Auto) 3.1 1.0-4.0 10^3/uL Monocytes # (Auto) 1.0 0.0-1.0 10^3/uL Eosinophils # (Auto) 0.1 0.0-0.3 10^3/uL Basophils # (Auto) 0.1 0.0-0.1 10^3/uL Immature Granulocyte # (Auto) 0.0 0.0-0.1 10^3/uL Prothrombin Time 15.6 H 12.2-14.7 SEC INR Comment 1.2 0.8-1.4 Activated Partial Thromboplast Time 29 24-35 SEC D-Dimer 2.94 H 0.00-0.49 UG/ML Sodium Level 139 135-145 MMOL/L Potassium Level 4.0 3.6-5.0 MMOL/L Chloride Level 103 98-107 MMOL/L Carbon Dioxide Level 24 21-32 MMOL/L Anion Gap 12 5-14 MMOL/L Blood Urea Nitrogen 27 H 7-18 MG/DL Creatinine 0.96 0.60-1.30 MG/DL Estimat Glomerular Filtration Rate 87 BUN/Creatinine Ratio 28 Glucose Level 144 H 70-105 MG/DL Calcium Level 9.1 8.5-10.1 MG/DL Corrected Calcium 8.9 8.5-10.1 MG/DL Magnesium Level 2.0 1.6-2.4 MG/DL Total Bilirubin 1.4 H 0.1-1.0 MG/DL Aspartate Amino Transf (AST/SGOT) 27 5-34 U/L Alanine Aminotransferase (ALT/SGPT) 50 0-55 U/L Alkaline Phosphatase 65 40-136 U/L Total Creatine Kinase 153 30-200 U/L Creatine Kinase MB 2.5 <6.6 NG/ML Myoglobin 72.1 10.0-92.0 NG/ML Troponin I 0.070 H <0.028 NG/ML B-Type Natriuretic Peptide 1005.0 H <100.0 PG/ML Total Protein 7.3 6.4-8.2 GM/DL Albumin 4.3 3.2-4.5 GM/DL Amylase Level 36 25-125 U/L Lipase 20 8-78 U/L Blood Gas Puncture Site RRAD Blood Gas Patient Temperature 36.5 Arterial Blood pH 7.35 L 7.37-7.43 Arterial Blood Partial Pressure CO2 42 35-45 MMHG Arterial Blood Partial Pressure O2 58 L 79-93 MMHG Arterial Blood HCO3 23 23-27 MMOL/L Arterial Blood Total CO2 24.0 21.0-31.0 MMOL/L Arterial Blood Oxygen Saturation 88 L 94-100 % Arterial Blood Base Excess -2.2 -2.5-2.5 MMOL/L Vladimir Test YES-POS Blood Gas Ventilator Setting NO Blood Gas Inspired Oxygen 4L My Orders Orders - MARY LOU AGUILAR DO Cbc With Automated Diff (03/24/23 00:16) Magnesium (03/24/23 00:16) Ekg Tracing (03/24/23 00:16) Comprehensive Metabolic Panel (03/24/23 00:16) Myoglobin Serum (03/24/23 00:16) Protime With Inr (03/24/23 00:16) Partial Thromboplastin Time (03/24/23 00:16) O2 (03/24/23 00:16) Monitor-Rhythm Ecg Trace Only (03/24/23 00:16) Ed Iv/Invasive Line Start (03/24/23 00:16) Creatine Kinase (03/24/23 00:16) Creatine Kinase Mb (03/24/23 00:16) Lipase (03/24/23 00:16) Amylase (03/24/23 00:16) Bnp Mariah (03/24/23 00:16) Fibrin Degradation Products (03/24/23 00:16) Troponin I [place] (03/24/23 00:16) Aspirin Chewable Tablet (Baby Aspirin Ch (03/24/23 00:30) Enoxaparin Injection (Lovenox Injection) (03/24/23 00:30) Diltiazem Drip Pre-Mix (Cardizem Drip Pr (03/24/23 00:30) Diltiazem Injection (Cardizem Injection) (03/24/23 00:30) Ed Iv/Invasive Line Start (03/24/23 00:29) Ns Iv 1000 Ml (Sodium Chloride 0.9%) (03/24/23 00:30) Chest 1 View, Ap/Pa Only (03/24/23 ) Ekg Tracing (03/24/23 00:57) Furosemide Injection (Lasix Injection) (03/24/23 01:30) Furosemide Injection (Lasix Injection) (03/24/23 01:21) Arterial Blood Gas (03/24/23 01:25) Medications Given in ED Current Medications Medications Dose Ordered Sig/Cesar Route Start Time Stop Time Status Last Admin Dose Admin Aspirin 324 mg ONCE ONCE PO 03/24/23 00:30 03/24/23 00:31 DC 03/24/23 00:30 324 MG Diltiazem HCl 20 mg ONCE ONCE IVP 03/24/23 00:30 03/24/23 00:31 DC 03/24/23 00:31 20 MG Enoxaparin Sodium 100 mg ONCE ONCE SC 03/24/23 00:30 03/24/23 00:31 DC 03/24/23 00:30 100 MG Furosemide 80 mg ONCE ONCE IVP 03/24/23 01:30 03/24/23 01:31 DC 03/24/23 01:22 80 MG Vital Signs/I&O 03/24/23 03/24/23 03/24/23 03/24/23 00:15 00:15 00:30 00:31 Temp 36.5 Pulse 135 131 133 Resp 22 B/P (MAP) 133/102 (112) 133/102 133/102 Pulse Ox 93 93 O2 Delivery Nasal Cannula Nasal Cannula O2 Flow Rate 2.00 2.00 03/24/23 01:38 Pulse 125 Pulse Ox 100 O2 Flow Rate 100.00 Blood Pressure Mean: 112 Progress Progress Note : Progress Note ON ARRIVAL: PT NOTED TO BE IN ATRIAL FIBRILLATION WITH RVR--RATE 130'150'S--ON ARRIVAL BP 120'S/100'S O2 SAT 90-92% ON ROOM AIR PLACED ON O2 AT 2L/NC AND SATS UP TO 93% GIVEN: -ASPIRIN -CARDIZEM BOLUS AND DRIP--HR DOWN TO AROUND 100, STILL IN ATRIAL FIBRILLATION -LOVENOX -LASIX PT WITH ELEVATED TROPONIN AND D-DIMER, CT CHEST ANGIOGRAM ORDERED. PT TAKEN TO RADIOLOGY DEPT, AND BECAME VERY ORTHOPNEIC AND VERY SHORT OF BREATH--UNABLE TO DO CT SCAN, AND PT BROUGHT BACK TO ER DEPT. PT NOW IN TRIPOD POSITION ON SIDE OF BED THEN STANDING ON SIDE OF BED, LEANING OVER BEDSIDE TABLE, VERY DYSPNEIC IN SIGNIFICANT RESPIRATORY DISTRESS, O2 UP TO 5L/NC AND SATS IN MID 80'S IMMEDIATELY PLACED ON BIPAP WITH IMMEDIATE AND SIGNIFICANT IMPROVEMENT. PT IS NO LONGER IN TRIPOD POSITION, AND IS ABLE TO SIT BACK ON BED PROPERLY, HIS RESPIRATIONS ARE NO LONGER LABORED, AND HIS O2 SATS IMMEDIATELY UP TO 99%. PT STATES HE FEELS MUCH BETTER. PT QUESTIONED ABOUT HIS CODE STATUS AND HE IS ADAMANT THAT HE DOES NOT WANT TO BE ON A VENTILATOR AND DOES NOT WANT CPR/RESUSCITATION. IS PRESENT AT THIS, AND SHE VERIFIES THIS. DISCUSSED TEST RESULTS, NEED FOR ADMIT AND PT IS AGREEABLE TO PLAN. REVIEWED PRIOR RECORDS, INCLUDING ER VISIT, ADMIT/H&P/CONSULTS/DISCHARGE SUMMARIES, TESTS/PROCEDURES. Initial ECG Impression Date: March 24, 2023 Initial ECG Impression Time: 00:23 Initial ECG Rate: 139 Initial ECG Rhythm: A Fib/Flutter Initial ECG Intervals GA--N/A QRS 132 QT/QTC 328/409 Initial ECG Impression: Atrial Fibrillation w/RVR (WITH RBBB, Q WAVES V1-V4) Initial ECG Comparisson: Changed (CHANGED FROM EKGS WITH STEMI 02/2016) Comment INTERPRETED BY ME EKG : EKG Time: 00:59 Rate: 105 Rhythm: A Fib/Flutter Intervals GA--N/A QRS 136 QT/QTC 385/446 ECG Impression: Atrial Fibrillation w/RVR (RBBB) Diagnostic Imaging Comments CXR--PENDING RADIOLOGIST REVIEW -CARDIOMEGALY WITH CHF Reviewed: Reviewed by Me Critical Care Note Critical Care Start Time: 00:16 Stop Time: 02:10 Total Time (minutes) 114 Progress SEE NOTES FOR DETAILS Departure Communication (Admissions) 0137--SPOKE WITH DR. PARRA, [employer], RECOMMENDATIONS NOTED. WILL ADMIT TO HOSPITALIST AND HE WILL SEE PT IN CONSULT 0143--SPOKE WITH DR. SANTOS, HOSPITALIST, ACCEPTS PT FOR ADMIT. 0150--REPORT TO E-ICU PHYSICIAN, DR. MONTOYA. Impression Primary Impression: New onset atrial fibrillation Additional Impressions: Atrial fibrillation with rapid ventricular response Chest pain Elevated troponin CHF (congestive heart failure) HTN (hypertension) Non-compliance Heavy smoker (more than 20 cigarettes per day) Acute respiratory failure Disposition: ADMITTED INPATIENT Condition: Improved Admissions Decision to Admit Reason: Admit from ER (General) Decision to Admit/Date: March 24, 2023 Time/Decision to Admit Time: 01:45 Departure-Patient Inst. Referrals: NO,LOCAL PHYSICIAN (PCP/Family) Primary Care Physician MARY LOU AGUILAR DO March 24, 2023 01:11
[2023-03-24] MEDS ORDERED: FUROSEMIDE 40 MG/4 ML INJ (LASIX) ONE (01:21)
[2023-03-24] MEDS ORDERED: FUROSEMIDE 40 MG/4 ML INJ (LASIX) IVP ONE (01:30)
[2023-03-24 01:32] LABS: ABG BASE EXCESS -2.2 MMOL/L (-2.5-2.5); ABG OXYGEN SATURATION 88 % (94-100); ABG PCO2 42 MMHG (35-45); ABG PH 7.35 (7.37-7.43); ABG PO2 58 MMHG (79-93); ALLENS TEST YES-POS; INSPIRED O2 4L; VENTILATOR NO
[2023-03-24 01:33] LABS: PATIENT TEMP 36.5
[2023-03-24 01:38] VITALS: BP 125/88
[2023-03-24 02:26] VITALS: BP 132/96
[2023-03-24 02:39] LABS: ABG OXYGEN SATURATION 99 % (94-100); ABG PCO2 48 MMHG (35-45); ABG PO2 118 MMHG (79-93); ABG TCO2 26.8 MMOL/L (21.0-31.0)
[2023-03-24 02:40] LABS: ALLENS TEST YES-POS; INSPIRED O2 70%; VENTILATOR NO
[2023-03-24 02:41] LABS: ABG PH 7.34 (7.37-7.43); PATIENT TEMP 36.2
[2023-03-24 03:10] VITALS: BP 133/102
[2023-03-24] MEDS ORDERED: RT-ALBUTEROL/IPRATROPIUM 3 ML (DUONEB) VIAL INH ONE (03:15)
[2023-03-24] MEDS ORDERED: ONDANSETRON 4 MG/2 ML (SDV) Z0FRAN IVP PRN (03:30)
[2023-03-24] MEDS ORDERED: morphine INJ 4 MG/ML 1 ML (VIAL/SYRINGE) IV PRN (03:30)
[2023-03-24] MEDS: dilTIAZem DRIP 125 MG/125 ML DRIP IV SCH ×2 (03:47→08:03)
--- NOTE | 2023-03-24 04:38 | Tele-ICU Progress Note ---
Progress Note 67M with CAD s/p MIx2, PCI x4 presented with CP. Pain was similar in nature to prior GA but less severe. Found to be in new afib with rates up to 160. Has had SOB x4 wks but did not come for eval until CP developed. Previously had GA in 2006 with stent to LAD x2. Did not follow up after that. Had STEMI with cardiogenic shock, stent to LCx x2 in 2016. Has not followed up with cardiology since 2016. Has not followed up with primary or any other MD in over 3 years. Takes only ASA 81 mg and lasix when he feels he needs it (none recently). 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 Was started on cardizem gtt for RVR, lovenox 100 mg and lasix 80 mg. Had marginal troponin elevation. Noted to have new RBBB, although last EKG was during STEMI. He was sent for CTA but had decomponsation with resp distress. BiPap initiated with significant clinical improvement. A/P: - hypoxia/SOB/resp distress: suspect cardiogenic. Appears of pulmonary vascular congestion on CXR. Appears relatively similar to last CXR in 2016, however he was having STEMI at that time. Unclear if this is a stable CXR or recurrence of pulm edema. Will need echo in AM. CTA in am as well, but is on empiric lovenox so no urgency. - afib: unclear whether this is afib with RVR causing resp distress or if this was hypoxia causing afib with RVR. Cardiology consulted. Current 91/61, HR 86. Cardizem has just been turned down from 15 to 10 due to low BP. Patient assessed via real-time audiovisual communication system. CCT 8 min Focused Exam Height, Weight, BMI Height: 5'10.00" Weight: 213lbs. 8.0oz. 96.759786yr; 30.24 BMI Method:Stated ZAHRA MONTOYA MD March 24, 2023 04:37
[2023-03-24] MEDS ORDERED: NS IV 500 ML 500 ML IV PRN (05:00)
[2023-03-24 05:10] LABS: BASOPHILS # (AUTO) 0.1 10^3/uL (0.0-0.1); BASOPHILS % (AUTO) 1 % (0-10); EOSINOPHILS # (AUTO) 0.1 10^3/uL (0.0-0.3); EOSINOPHILS % (AUTO) 1 % (0-10); HEMATOCRIT 45 % (40-54); HEMOGLOBIN 14.9 g/dL (13.3-17.7); LYMPHOCYTES # (AUTO) 2.3 10^3/uL (1.0-4.0); LYMPHOCYTES % (AUTO) 22 % (12-44); MEAN CORPUSCULAR HEMOGLOBIN 30 pg (25-34); MEAN CORPUSCULAR HGB CONC 33 g/dL (32-36); MEAN CORPUSCULAR VOLUME 90 fL (80-99); MEAN PLATELET VOLUME 11.3 fL (9.0-12.2); MONOCYTES # (AUTO) 0.8 10^3/uL (0.0-1.0); MONOCYTES % (AUTO) 7 % (0-12); NEUTROPHILS # (AUTO) 7.2 10^3/uL (1.8-7.8); NEUTROPHILS % (AUTO) 69 % (42-75); PLATELET COUNT 172 10^3/uL (130-400); WHITE BLOOD COUNT 10.5 10^3/uL (4.3-11.0)
[2023-03-24 05:16] LABS: POTASSIUM 3.8 MMOL/L (3.6-5.0)
[2023-03-24 05:18] LABS: CALCIUM 8.6 MG/DL (8.5-10.1)
[2023-03-24 05:19] LABS: TOTAL PROTEIN 7.1 GM/DL (6.4-8.2)
[2023-03-24 05:21] LABS: BILIRUBIN,TOTAL 1.5 MG/DL (0.1-1.0)
[2023-03-24 05:22] LABS: PHOSPHORUS 4.7 MG/DL (2.3-4.7)
[2023-03-24 05:23] LABS: CREATININE SERUM 0.86 MG/DL (0.60-1.30)
[2023-03-24 05:26] LABS: MAGNESIUM 1.9 MG/DL (1.6-2.4)
[2023-03-24] MEDS: CATHETER FLUSH 10 ML SYR IVP SCH ×3 (05:56→20:26)
[2023-03-24] MEDS ORDERED: KCL 20 MEQ TAB (K-DUR) PO SCH (06:00)
[2023-03-24] MEDS ORDERED: FUROSEMIDE 40 MG/4 ML INJ (LASIX) IV SCH (06:00)
[2023-03-24] MEDS: POTASSIUM CL 10MEQ/50ML IVPB 50 ML IV SCH (06:18)
[2023-03-24] MEDS: MAGNESIUM 1 GM/100 ML IVPB 100 ML IV SCH (06:19)
[2023-03-24] MEDS: KCL 20 MEQ TAB (K-DUR) PO SCH (06:19)
[2023-03-24] MEDS: ASPIRIN E.C. 81 MG (ECOTRIN) TAB PO SCH (08:03)
--- NOTE | 2023-03-24 08:06 | Diagnostic Imaging Report ---
EXAMINATION: Chest 1 view HISTORY: Chest pain. COMPARISON: 03/07/2016 FINDINGS: Heart is enlarged. There is moderate to severe pulmonary edema. No pleural effusion or pneumothorax. IMPRESSION: 1. Enlarged heart with moderate to severe pulmonary edema. Dictated by: Dictated on workstation # [id number]
[2023-03-24] MEDS: RT-ALBUTEROL/IPRATROPIUM 3 ML (DUONEB) VIAL INH SCH ×4 (09:37→21:44)
[2023-03-24] MEDS ORDERED: ASPI-1238 PO (12:41)
--- NOTE | 2023-03-24 12:57 | Consultation-Cardiology ---
HPI-Cardiology Cardiology Consultation: Date of Consultation 03/24/23 Time Seen by a Provider: 12:20 Date of Admission Attending Physician No,Local Physician Admitting Physician Admitting Physician: Eugenia Velásquez MD Attending Physician: Nidia Mercado MD Consulting Physician ERIKA PARRA MD, MA, FACP, FACC, FSCAI, CCDS HPI: Chief Complaint: Shortness of breath 67 yo man with increasing shortness of breath for several weeks that is more marked in the last 4-5 days, admitted to the [facility] on the evening fo 03/23/23 through the ER where he was found to have A Fib with RVR, CHF and elevated troponin. Currently feeling better. Has had vague chest discomfort since onset of symptoms: mild, pressure-like, associated with shortness of breath, present all the time, w/o aggravating or relieving factors, w/o radiation, not experienced before. Also has had an intermittent feeling or rapid, irreg heart beat. Notes leg swelling and abd distention. Denies fever or chills. Notes gen malaise Review of Systems-Cardiology Review of Systems Constitutional: malaise, tiredness; No weight loss, No weight gain Eyes: No vision change Ears/Nose/Throat: No ear discharge, No nasal drainage, No recent hearing loss Respiratory: As described under HPI Cardiovascular: As described under HPI Gastrointestinal: As described under HPI; No diarrhea, No nausea, No vomiting Genitourinary: No dysuria, No hematuria, No urine frequency changes Musculoskeletal: No back pain, No joint pain Skin: No rash, No ulcerations Psychiatric/Neurological: No focal weakness, No syncope Hematologic: No bleeding abnormalities [id number]-Rocfqt Hx Patient Social History Smoking Status: Current Everyday Smoker 2nd Hand Smoke Exposure: Yes Have you traveled recently?: No Alcohol Use?: No Pt feels they are or have been: No Tobacco type used: Cigarettes Immunizations Up To Date Tetanus Booster (TDap): Unknown Past Medical History PMH As described under Assessment. Family Medical History Family History: Diabetes mellitus G8 SISTER Myocardial infarction 19 FATHER 19 MOTHER Allergies and Home Medications Allergies Coded Allergies: amoxicillin (Verified Allergy, Unknown, 03/06/16) clavulanic acid (Verified Allergy, Unknown, 03/06/16) ticagrelor (Verified Allergy, Unknown, 09/09/19) Patient Home Medication List Home Medication List Reviewed: Yes Aspirin (Aspirin EC) 81 Mg Tablet.dr, 81 MG PO HS, (Reported) Entered as Reported by: LUISA LEE on 03/24/23 1241 Last Action: Reviewed Discontinued Medications Aspirin (Aspirin EC) 81 Mg Tablet.dr, 81 MG PO DAILY Discontinued Reason: No Longer Taking Prescribed by: TRINO CARTER on 03/08/16926 Last Action: Discontinued Atorvastatin Calcium (Atorvastatin Calcium) 80 Mg Tablet, 80 MG PO HS Discontinued Reason: No Longer Taking Prescribed by: TRINO CARTER on 03/08/16926 Last Action: Discontinued Carvedilol (Coreg) 3.125 Mg Tablet, 3.125 MG PO BID Discontinued Reason: No Longer Taking Prescribed by: TRINO CARTER on 03/08/16926 Last Action: Discontinued Ciprofloxacin HCl (Ciprofloxacin HCl) 500 Mg Tablet, 500 MG PO BID Discontinued Reason: No Longer Taking Prescribed by: STEVE CUMMINS on 09/10/1930 Last Action: Discontinued Furosemide (Lasix) 20 Mg Tablet, 20 MG PO DAILY PRN PRN for edema Discontinued Reason: No Longer Taking Prescribed by: TRINO CARTER on 03/08/16926 Last Action: Discontinued Lisinopril (Lisinopril) 10 Mg Tablet, 5 MG PO DAILY, (Reported) Discontinued Reason: No Longer Taking Entered as Reported by: MAYUR MCNAMARA on 03/06/16945 Last Action: Discontinued Metronidazole (Flagyl) 500 Mg Tablet, 500 MG PO TID Discontinued Reason: No Longer Taking Prescribed by: STEVE CUMMINS on 09/10/1930 Last Action: Discontinued [place] 3 Polyunsat Fatty Acids (Fish Oil 1,000 mg Capsule) 1,000 Mg Cap, 1,000 MG PO BID WITH MEALS Discontinued Reason: No Longer Taking Prescribed by: TRINO CARTER on 03/08/16926 Last Action: Discontinued Potassium Chloride (K-Tab ER) 10 Meq Tablet.er, 10 MEQ PO DAILY PRN for with lasix Discontinued Reason: No Longer Taking Prescribed by: TRINO CARTER on 03/08/16926 Last Action: Discontinued Physical Exam-Cardiology Physical Exam Vital Signs/I&O 03/24/23 03/24/23 03/24/23 03/24/23 01:38 02:10 02:25 02:26 Temp 36.7 Pulse 125 109 117 113 Resp 20 B/P (MAP) 134/92 Pulse Ox 100 99 100 O2 Delivery NIV Bilevel O2 Flow Rate 100.00 70.00 70.00 03/24/23 03/24/23 03/24/23 03/24/23 02:30 02:45 03:00 03:00 Temp 36.2 Pulse 117 105 112 Resp 18 B/P (MAP) 139/100 (113) 132/96 (107) 129/93 (116) Pulse Ox 99 100 99 O2 Delivery NIV Bilevel NIV Bilevel NIV Bilevel NIV Bilevel O2 Flow Rate 70.00 70.00 40.00 40.00 03/24/23 03/24/23 03/24/23 03/24/23 03:02 03:10 03:15 03:30 Temp 36.5 Pulse 135 109 90 B/P (MAP) 120/95 (99) 118/74 (95) Pulse Ox 99 93 95 97 O2 Delivery NIV Bilevel NIV Bilevel NIV Bilevel O2 Flow Rate 40.00 40.00 FiO2 70 03/24/23 03/24/23 03/24/23 03/24/23 03:45 04:00 04:00 04:00 Temp 36.4 Pulse 89 90 B/P (MAP) 99/67 (76) 89/61 (70) Pulse Ox 92 93 93 O2 Delivery NIV Bilevel NIV Bilevel NIV Bilevel O2 Flow Rate 40.00 40.00 FiO2 40 03/24/23 03/24/23 03/24/23 03/24/23 04:15 04:30 04:45 05:00 Pulse 98 85 87 96 B/P (MAP) 91/61 (76) 100/73 (84) 100/64 (69) 117/83 (93) Pulse Ox 94 93 96 99 O2 Delivery NIV Bilevel NIV Bilevel NIV Bilevel NIV Bilevel O2 Flow Rate 40.00 40.00 40.00 40.00 03/24/23 03/24/23 03/24/23 03/24/23 05:15 05:30 05:45 06:00 Pulse 100 92 91 B/P (MAP) 89/78 (84) 100/73 (82) 87/59 (66) Pulse Ox 97 96 95 O2 Delivery NIV Bilevel NIV Bilevel NIV Bilevel Nasal Cannula O2 Flow Rate 40.00 40.00 40.00 4.00 03/24/23 03/24/23 03/24/23 03/24/23 06:00 06:15 06:30 06:45 Pulse 87 109 99 102 B/P (MAP) 87/60 (69) 141/84 (102) 122/84 (97) 111/84 (93) Pulse Ox 92 93 93 95 O2 Delivery Nasal Cannula Nasal Cannula Nasal Cannula Nasal Cannula O2 Flow Rate 4.00 4.00 4.00 4.00 03/24/23 03/24/23 03/24/23 03/24/23 07:00 07:16 07:57 08:00 Pulse 104 104 103 B/P (MAP) 94/73 (80) 98/67 (77) Pulse Ox 91 95 92 O2 Delivery Nasal Cannula Nasal Cannula Nasal Cannula O2 Flow Rate 4.00 4.00 4.00 03/24/23 03/24/23 03/24/23 03/24/23 08:03 09:00 09:15 09:30 Pulse 104 110 98 111 B/P (MAP) 94/73 118/63 (81) 95/68 (77) 100/67 (78) Pulse Ox 88 89 94 O2 Delivery Nasal Cannula Nasal Cannula Nasal Cannula O2 Flow Rate 4.00 4.00 4.00 03/24/23 03/24/23 03/24/23 03/24/23 09:37 09:45 10:00 11:00 Pulse 110 104 91 B/P (MAP) 115/77 (90) 104/62 (76) 103/71 (82) Pulse Ox 94 95 92 90 O2 Delivery Nasal Cannula Nasal Cannula Nasal Cannula Nasal Cannula O2 Flow Rate 1.00 4.00 4.00 4.00 03/24/23 12:00 Pulse 101 B/P (MAP) 103/69 (80) Pulse Ox 91 O2 Delivery Nasal Cannula O2 Flow Rate 4.00 Capillary Refill : Less Than 3 Seconds Constitutional: AAO x 3, well-developed, well-nourished HEENT: EOMI, hearing is well preserved; No xanthelasmas are seen Neck: carotid pulses are 2 + bilaterally, with good upstrokes Respiratory: No accessory muscle use; chest expansion is symmetric, chest is bilaterally symmetric, other (good, bilateral air entry; basal coarse and fine crackles) Cardiovascular: irregularly irregular, S1 and S2, systolic murmur (soft DONALD at card base) Gastrointestinal: No tender; distended; No guarding, No rebound; audible bowel sounds Extremities: swelling (mild, bilateral leg edema); No clubbing, No cyanosis Neurologic/Psychiatric: oriented x 3, other (moves all limbs equally) Skin: No rash on exposed areas, No ulcerations on exposed areas Data Review Labs Laboratory Tests 03/24/23 00:17: White Blood Count 10.7, Red Blood Count 5.30, Hemoglobin 15.7, Hematocrit 48, Mean Corpuscular Volume 90, Mean Corpuscular Hemoglobin 30, Mean Corpuscular Hemoglobin Concent 33, Red Cell Distribution Width 13.7, Platelet Count 235, Mean Platelet Volume 10.5, Immature Granulocyte % (Auto) 0, Neutrophils (%) (Auto) 59, Lymphocytes (%) (Auto) 29, Monocytes (%) (Auto) 10, Eosinophils (%) (Auto) 1, Basophils (%) (Auto) 1, Neutrophils # (Auto) 6.3, Lymphocytes # (Auto) 3.1, Monocytes # (Auto) 1.0, Eosinophils # (Auto) 0.1, Basophils # (Auto) 0.1, Immature Granulocyte # (Auto) 0.0, Prothrombin Time 15.6H, INR Comment 1.2, Activated Partial Thromboplast Time 29, D-Dimer 2.94H, Sodium Level 139, Potassium Level 4.0, Chloride Level 103, Carbon Dioxide Level 24, Anion Gap 12, Blood Urea Nitrogen 27H, Creatinine 0.96, Estimat Glomerular Filtration Rate 87, BUN/Creatinine Ratio 28, Glucose Level 144H, Calcium Level 9.1, Corrected Calcium 8.9, Magnesium Level 2.0, Total Bilirubin 1.4H, Aspartate Amino Transf (AST/SGOT) 27, Alanine Aminotransferase (ALT/SGPT) 50, Alkaline Phosphatase 65, Total Creatine Kinase 153, Creatine Kinase MB 2.5, Myoglobin 72.1, Troponin I 0.070H, B-Type Natriuretic Peptide 1005.0H, Total Protein 7.3, Albumin 4.3, Amylase Level 36, Lipase 20 03/24/23 01:27: Blood Gas Puncture Site RRAD, Blood Gas Patient Temperature 36.5, Arterial Blood pH 7.35L, Arterial Blood Partial Pressure CO2 42, Arterial Blood Partial Pressure O2 58L, Arterial Blood HCO3 23, Arterial Blood Total CO2 24.0, Arterial Blood Oxygen Saturation 88L, Arterial Blood Base Excess -2.2, Vladimir Test YES- POS, Blood Gas Ventilator Setting NO, Blood Gas Inspired Oxygen 4L 03/24/23 02:34: Blood Gas Puncture Site LEFT RAD, Blood Gas Patient Temperature 36.2, Arterial Blood pH 7.34*L, Arterial Blood Partial Pressure CO2 48H, Arterial Blood Partial Pressure O2 118H, Arterial Blood HCO3 25, Arterial Blood Total CO2 26.8, Arterial Blood Oxygen Saturation 99, Arterial Blood Base Excess 0.0, Vladimir Test YES-POS, Blood Gas Ventilator Setting NO, Blood Gas Inspired Oxygen 70% 03/24/23 04:45: White Blood Count 10.5, Red Blood Count 5.01, Hemoglobin 14.9, Hematocrit 45, Mean Corpuscular Volume 90, Mean Corpuscular Hemoglobin 30, Mean Corpuscular Hemoglobin Concent 33, Red Cell Distribution Width 13.8, Platelet Count 172, Mean Platelet Volume 11.3, Immature Granulocyte % (Auto) 0, Neutrophils (%) ( Auto) 69, Lymphocytes (%) (Auto) 22, Monocytes (%) (Auto) 7, Eosinophils (%) (Auto) 1, Basophils (%) (Auto) 1, Neutrophils # (Auto) 7.2, Lymphocytes # (Auto) 2.3, Monocytes # (Auto) 0.8, Eosinophils # (Auto) 0.1, Basophils # (Auto) 0.1, Immature Granulocyte # (Auto) 0.0, Sodium Level 139, Potassium Level 3.8, Chloride Level 103, Carbon Dioxide Level 21, Anion Gap 15H, Blood Urea Nitrogen 26H, Creatinine 0.86, Estimat Glomerular Filtration Rate 95, BUN/Creatinine Ratio 30, Glucose Level 139H, Calcium Level 8.6, Corrected Calcium 8.6, Magnesium Level 1.9, Total Bilirubin 1.5H, Aspartate Amino Transf (AST/SGOT) 27, Alanine Aminotransferase (ALT/SGPT) 52, Alkaline Phosphatase 61, Troponin I 0.092H, Total Protein 7.1, Albumin 4.0, Phosphorus Level 4.7, Triglycerides Level 69, Cholesterol Level 137, LDL Cholesterol Direct 90, VLDL Cholesterol 14, HDL Cholesterol 34L Laboratory Tests 03/24/23 00:17 03/24/23 04:45 A/P-Cardiology Assessment/Admission Diagnosis A Fib of unknown age, associated with RVR Ac sys CHF - Echo on 03-24-23: LVEF 30-35%, anteroapical akinesis, anteroseptal and anter olateral hypokinesis, mild to mod MR, mod to severe enlargement of LA, PASP could not be reliably estimated CAD - Last card cath in 2015 (Dr Carter): LMCA ok, LAD 50% ostial, patent stens in prox and mid LAD, occluded mid LCx treated with 2.5 x 20 Promus stent, severe disease of OM 1 treated with 2.25 x 24 Promus stent, RCA nondominant and with mod disease, LV gram showed inf hypokinesis and LVEF 40% Elevated d-Dimer at presentation on 03-23-23 Discussion and Recomendations * Dig and dilt for vent rate control * Enoxaparin for stroke prevention and to treat the possibility of ACS * We recommend card cath, given elev troponin in the setting of known multivessel CAD (see above). We reviewed the rationale, procedure, risks, benefits, potential complications, and alternatives of card cath and possible ad hoc PCI with him and his family in detail. The patient understands and provides informed consent * Treat heart failure with diuretics as needed * Treat cardiomyopathy and CHF with bb, Entresto, spironolactone and SGLT-2 inhib as tolerated * Monitor labs closely * Pulm CT angio today to eval for PE Clinical Quality Measures AMI/AHF: ASA po Prior to arrival: ERIKA Weir MD [facility] March 24, 2023 12:56
[2023-03-24] MEDS ORDERED: DIGOXIN 0.25 MG/ML (LANOXIN) 2 ML AMP IV NR (13:15)
[2023-03-24] MEDS ORDERED: EMPAGLIFLOZIN 10 MG TABLET (JARDIANCE) PO NR (13:15)
[2023-03-24] MEDS: ENOXAPARIN 100 MG/1 ML (LOVENOX) SYR SC SCH (13:21)
--- NOTE | 2023-03-24 13:40 | History & Physical-Hospitalist ---
[facility] 03/24/23 1340: History of Present Illness HPI/Chief Complaint This is a 67 y/o M current smoker with PMH HFrEF and multiple cardiac stents who presented to the ED overnight with SOB for the past few months that has been worsening the past 4 days. He had increased trouble breathing last night so decided to come to ER. He did not have CP at the time of arrival but notes CP started after he was given medication to slow his heart rate in the ED. CP was in the upper left chest and was sharp but not severe only a 1-2/10 in severity. He notes it was different from the pain he had with previous MIs. Labs were notable for BNP 1005, troponin at 0.092. CXR with enlarged heart and moderate to severe pulmonary edema. He was unable to lay flat for CTA that was ordered so it was not performed. EKG with Afib with RVR, pt reports he has never had Afib before. He was started on diltiazem and has not converted to sinus though dose has been limited by low blood pressures. Patient reports he only takes a baby aspirin daily and occasionally uses diuretics when he feels he needs them. Has not seen a physician for at least a few years. Last echo in 2017 with EF 40%. Today's echo with LVEF 30-35%, anteroapical akinesis, anteroseptal and anterola teral hypokinesis, mild to mod MR, mod to severe enlargement of LA, PASP could not be reliably estimated. Cardiology recommends heart cath. At this time, patient is not having CP or SOB at rest. He does become SOB with activity and is unable to lie flat on his back as it causes trouble breathing. He had one episode in the past week of waking from sleep short of breath. He has also been having trouble sleeping the past few nights as he is uncomfortable and SOB. Pt is having rib cramps on the right lateral side with coughing or movement. No lightheadedness today, did have some yesterday with bending over. He reports feeling like his abdomen is distended for the past week, no nausea or vomiting, having regular nonbloody BMs with last yesterday. He reports cleaning out an old building for the past few weeks and has had a cough with white and occasionally brown sputum production that he attributes to dust. Patient lying comfortably in bed with family at bedside during my exam. Source: patient, family Exam Limitations: no limitations Date Seen 03/24/23 Time Seen by a Provider: 08:20 Attending Physician No,Local Physician PCP Admitting Physician: Eugenia Velásquez MD Attending Physician: Meghna Gonzales MD Referring Physician Date of Admission March 24, 2023 at 02:01 Home Medications & Allergies Home Medications Reviewed patient Home Medication Reconciliation performed by pharmacy medication reconciliations pathological technician and/or nursing. Patients Allergies have been reviewed. Allergies Allergies Coded Allergies amoxicillin (Verified Allergy, Unknown, 03/06/16) clavulanic acid (Verified Allergy, Unknown, 03/06/16) ticagrelor (Verified Allergy, Unknown, 09/09/19) Past Pkwjhsl-Rmodun-Rizhmq Hx Patient Social History Marrital Status: Tobacco Use?: Yes Tobacco type used: Cigarettes Smoking Status: Current Everyday Smoker (1 ppd) Substance use?: No Alcohol Use?: No Pt feels they are or have been: No Immunizations Up To Date First/Initial COVID19 Vaccinat: NA Tetanus Booster (TDap): Unknown Seasonal Allergies Seasonal Allergies: No Current Status Advance Directives: No Communicates: Verbally Primary Language: South African Preferred Spoken Language: South African Is interpretation needed?: No Implanted or Applied Medical D: None Past Medical History Surgeries: Cardiac, Coronary Stent COPD Coronary Artery Disease, Heart Attack, High Cholesterol, Hypertension Sexually Transmitted Disease: No HIV/AIDS: No Abdominal Hernia, Diverticulosis Blood Disorders: No Adverse Reaction/Blood Tranf: No Family Medical History Diabetes mellitus G8 SISTER Myocardial infarction 19 FATHER 19 MOTHER Heart Disease SOCIAL HISTORY: -SMOKES 1 PPD -DENIES ETOH USE -DENIES DRUG USE VA'S X 2 WITH CARDIAC CATHS X 2 FIRST VA AROUND 2005, WITH STENTS X 2 TO LAD SECOND VA / STEMI WITH CARDIOGENIC SHOCK 03/06/2016: CARDIAC CATH 03/06/[address] CHAHAL CONCLUSION: 1. Acute ST elevation myocardial infarction with heavy thrombus burden and total occlusion of the large dominant proper circumflex artery. Successful emergency angioplasty and then stent deployment using 2.5 x 20 mm Promus Premier stent, expanded to 2.65 mm with excellent results. Door to balloon time was 65 minutes. Door to needle time was 58 minutes. 2. Severe stenosis at the ostial and proximal left circumflex artery with deployment of 2.25 x 20 mm Promus Premier stent, expanded to 2.5 mm with excellent results. 3. Patent stents in the proximal and mid LAD, 50% ostial LAD stenosis. 4. Mild disease in a small, nondominant right coronary artery. 5. Dilated left ventricle with severe inferior wall hypokinesia with estimated ejection fraction is 40%. Review of Systems Constitutional: No chills, No dizziness, No fever EENTM: No blurred vision, No double vision Respiratory: cough, dyspnea on exertion, orthopnea, phlegm, short of breath Cardiovascular: chest pain, edema (minimal), Hx of Intervention Gastrointestinal: No abdominal pain; other (abdominal distension) Genitourinary: No decreased output, No discharge, No dysuria Musculoskeletal: muscle cramps; No muscle weakness Skin: No change in color; dryness (elbows) Psychiatric/Neurological: Denies Headache, Denies Numbness All Other Systems Reviewed Negative Unless Noted: Yes (Negative excepted noted.) Physical Exam Physical Exam Vital Signs Vital Signs - First Documented 03/24/23 03/24/23 00:15 03:02 Temp 36.5 Pulse 135 Resp 22 B/P (MAP) 133/102 (112) Pulse Ox 93 O2 Delivery Nasal Cannula O2 Flow Rate 2.00 FiO2 70 Capillary Refill : Less Than 3 Seconds Height, Weight, BMI Height: 5'10.00" Weight: 213lbs. 8.0oz. [id number]; 30.24 BMI Method:Stated General Appearance: No Apparent Distress, Chronically ill HEENT: PERRL/EOMI, Moist Mucous Membranes; No Scleral Icterus (L), No Scleral Icterus (R) Neck: Full Range of Motion, Non Tender, Supple Respiratory: Chest Non Tender, No Accessory Muscle Use, No Respiratory Distress, Crackles Cardiovascular: Irregularly Irregular, Tachycardia Gastrointestinal: Non Tender, Distended, Hernia (umbilical) Back: Normal Inspection, No CVA Tenderness Extremity: Normal Capillary Refill, Pedal Edema (1-2+ at anterior tibial region) Neurologic/Psychiatric: Alert, Oriented x3, No Motor/Sensory Deficits, Normal Mood/Affect Skin: Normal Color, Warm/Dry Results Results/Procedures Labs Laboratory Tests 03/24/23 00:17 03/24/23 04:45 Patient resulted labs reviewed. Assessment/Plan Admission Diagnosis Admission Status: Inpatient Order (span 2 midnights) Reason for Inpatient Admission: Acute on chronic HFrEF New onset Afib with RVR Elevated troponins Assessment and Plan Acute on chronic HFrEF Orthopnea PND Echo 03/24/23 with EF 30-35% Cardiac cath recommended by Dr. Gage Diuretics 40mg qd Plan to start Entresto, spironolactone, beta juma after exacerbation New onset Afib with RVR Rate control with Digoxin and Diltiazem Cardio consult appreciated Elevated troponins T2 NSTEMI possible given known cardiac history Elevated d-dimer Obtain CTA if pt able, to r/o PE HTN History CAD Tobacco Abuse DVT prophylaxis: Lovenox Clinical Quality Measures AMI/AHF: ASA po Prior to arrival: MEGHNA Stokes MD 03/24/23 1624: History of Present Illness Time Seen by a Provider: 10:20 Past Uxzfzfu-Eaqbdp-Cggqpm Hx Family Medical History Diabetes mellitus G8 SISTER Myocardial infarction 19 FATHER 19 MOTHER Results Results/Procedures Imaging: Reviewed Imaging Report Assessment/Plan Admission Diagnosis AFib with RVR Admission Status: Inpatient Order (span 2 midnights) Reason for Inpatient Admission: IV medications Cardiology evaluation Assessment and Plan Admitted with acute on chornic HFrEF and new onset AFib with RVR. Cardiology consulted. Started on IV diltiazem and therapeutic Lovenox. Echo with reduced EF, slightly down from prior. Troponin slightly elevated. Planning for left heart cath. CT angio chest today with mediastinal lymphadenopathy, no identifiable lung mass. Will need pulmonology follow up with repeat imaging and/or bronchoscopy with biopsy. Critical Care Critically Ill Patient Diagnosis/Problems Diagnosis/Problems (1) Acute on chronic heart failure with reduced ejection fraction and diastolic dysfunction Status: Acute (2) Atrial fibrillation with rapid ventricular response Status: Acute (3) Elevated troponin Status: Acute (4) Mediastinal lymphadenopathy Status: Acute (5) Heavy smoker (more than 20 cigarettes per day) Status: Acute (6) HTN (hypertension) Status: Acute (7) CAD (coronary artery disease) Status: Chronic (8) Obesity Status: Chronic Supervisory-Addendum Brief Verification & Attestation Participated in pt care: history, MDM, physical Personally performed: exam, history, MDM, supervision of care Care discussed with: Medical Student Procedures: n/a Results interpretation: Verified all documentation A medical student performed and documented this service in my presence. I reviewed and verified all information documented by the medical student and made modifications to such information, when appropriate. I personally performed the physical exam and medical decision making. ELIEL PATRICK March 24, 2023 13:40 MEGHNA GONZALES MD March 24, 2023 16:24
[2023-03-24] MEDS ORDERED: NS 100 ML (IVPB) BAG IV ONE (13:45)
[2023-03-24] MEDS ORDERED: IOHEXOL 350 MG/ML 100 ML (OMNIPAQUE 350) VIAL IV ONE (13:45)
[2023-03-24] MEDS ORDERED: HOLD METFORMIN - RECEIVED CONTRAST 20 ML VIAL IV SCH (13:45)
--- NOTE | 2023-03-24 15:09 | Diagnostic Imaging Report ---
EXAM: CT ANGIO CHEST W (R/O PE) INDICATION: Shortness of air. COMPARISON: Chest radiograph 03/24/2023. FINDINGS: No pulmonary artery filling defects. Normal caliber thoracic aorta. Cardiomegaly. No pericardial effusion. Bulky mediastinal and bilateral hilar lymphadenopathy. For example, a pretracheal lymph node measures up to 1.6 cm in short axis dimension. A right hilar lymph node measures up to 2.0 in short axis dimension. Left hilar lymph node measures up to 1.5 cm in short axis dimension. Moderate right and small left pleural effusions. Calcified granuloma in the left upper lobe. Moderate paraseptal emphysema. No pneumothorax. No acute findings in the visualized upper abdomen. Osseous structures are intact. IMPRESSION: 1. No pulmonary emboli. 2. Bulky mediastinal and bilateral hilar lymphadenopathy. No primary lung mass is identified. Recommend correlation with clinical history including history of malignancy and infectious/inflammatory conditions such as sarcoidosis. 3. Moderate right and small left pleural effusion. 4. Moderate paraseptal emphysema. 5. Cardiomegaly. Dictated by: Dictated on workstation # [id number]
[2023-03-24] MEDS: SACUBITRIL/VALSARTAN 24/26 MG (ENTRESTO) TABLET PO SCH (20:26)
[2023-03-25] MEDS: ENOXAPARIN 100 MG/1 ML (LOVENOX) SYR SC SCH ×3 (00:45→23:14)
[2023-03-25] MEDS: RT-ALBUTEROL/IPRATROPIUM 3 ML (DUONEB) VIAL INH SCH ×6 (02:53→21:18)
[2023-03-25 04:08] LABS: BASOPHILS # (AUTO) 0.1 10^3/uL (0.0-0.1); BASOPHILS % (AUTO) 1 % (0-10); EOSINOPHILS # (AUTO) 0.2 10^3/uL (0.0-0.3); EOSINOPHILS % (AUTO) 2 % (0-10); HEMATOCRIT 42 % (40-54); LYMPHOCYTES # (AUTO) 2.9 10^3/uL (1.0-4.0); LYMPHOCYTES % (AUTO) 32 % (12-44); MEAN CORPUSCULAR HEMOGLOBIN 30 pg (25-34); MEAN CORPUSCULAR HGB CONC 34 g/dL (32-36); MEAN CORPUSCULAR VOLUME 89 fL (80-99); MEAN PLATELET VOLUME 10.4 fL (9.0-12.2); MONOCYTES # (AUTO) 0.9 10^3/uL (0.0-1.0); MONOCYTES % (AUTO) 10 % (0-12); NEUTROPHILS # (AUTO) 4.9 10^3/uL (1.8-7.8); NEUTROPHILS % (AUTO) 55 % (42-75); PLATELET COUNT 184 10^3/uL (130-400)
[2023-03-25 04:14] LABS: ALBUMIN 3.4 GM/DL (3.2-4.5); POTASSIUM 3.8 MMOL/L (3.6-5.0)
[2023-03-25 04:15] LABS: CALCIUM 8.2 MG/DL (8.5-10.1)
[2023-03-25 04:17] LABS: TOTAL PROTEIN 6.1 GM/DL (6.4-8.2)
[2023-03-25 04:18] LABS: BILIRUBIN,TOTAL 1.2 MG/DL (0.1-1.0)
[2023-03-25 04:20] LABS: CREATININE SERUM 0.81 MG/DL (0.60-1.30); PHOSPHORUS 3.8 MG/DL (2.3-4.7)
[2023-03-25 04:24] LABS: MAGNESIUM 1.9 MG/DL (1.6-2.4)
[2023-03-25] MEDS: POTASSIUM CL 10MEQ/50ML IVPB 50 ML IV SCH (04:33)
[2023-03-25] MEDS: KCL 20 MEQ TAB (K-DUR) PO SCH (04:33)
[2023-03-25] MEDS: MAGNESIUM 1 GM/100 ML IVPB 100 ML IV SCH ×2 (04:33→04:53)
[2023-03-25] MEDS: CATHETER FLUSH 10 ML SYR IVP SCH ×3 (04:52→20:32)
[2023-03-25] MEDS ORDERED: KCL 20 MEQ TAB (K-DUR) PO ONE (08:00)
[2023-03-25] MEDS: EMPAGLIFLOZIN 10 MG TABLET (JARDIANCE) PO SCH (08:07)
[2023-03-25] MEDS: FUROSEMIDE 40 MG (LASIX) TAB PO SCH (08:08)
[2023-03-25] MEDS: SPIRONOLACTONE 25 MG (ALDACTONE) TAB PO SCH (08:08)
[2023-03-25] MEDS: ASPIRIN E.C. 81 MG (ECOTRIN) TAB PO SCH (08:08)
[2023-03-25] MEDS: SACUBITRIL/VALSARTAN 24/26 MG (ENTRESTO) TABLET PO SCH ×2 (08:08→20:32)
--- NOTE | 2023-03-25 09:28 | Progress Note - Hospitalist ---
CELINAELIEL 03/25/23 0928: Subjective HPI/CC On Admission This is a 67 y/o M current smoker with PMH HFrEF and multiple cardiac stents who presented to the ED 03/24 with SOB for the past few months that has been worsening the past 4 days. He had increased trouble breathing last night so decided to come to ER. He did not have CP at the time of arrival but notes CP started after he was given medication to slow his heart rate in the ED. CP was in the upper left chest and was sharp but not severe only a 1-2/10 in severity. He notes it was different from the pain he had with previous MIs. Labs were notable for BNP 1005, troponin at 0.092. CXR with enlarged heart and moderate to severe pulmonary edema. He was unable to lay flat for CTA that was ordered so it was not performed. EKG with Afib with RVR, pt reports he has never had Afib before. He was started on diltiazem and has not converted to sinus though dose has been limited by low blood pressures. Patient reports he only takes a baby aspirin daily and occasionally uses diuretics when he feels he needs them. Has not seen a physician for at least a few years. Last echo in 2017 with EF 40%. Today's echo with LVEF 30-35%, anteroapical akinesis, anteroseptal and anterolateral hypokinesis, mild to mod MR, mod to severe enlargement of LA, PASP could not be reliably estimated. Cardiology recommends heart cath. Subjective/Events-last exam Today patient is feeling much better. Not having any CP. Does note some occasional SOB with activity or standing up quickly. He also has a dry cough. Still having muscle cramps, not as frequent. He reports not taking Jardiance as he did not know why he would be taking it. Scheduled for left heart cath today. CTA 03/24 with bulky mediastinal and bilateral hilar lymphadenopathy. Noprimary lung mass identified. Review of Systems General: No Chills, No Night Sweats HEENT: No Head Aches Pulmonary: Dyspnea, Cough Cardiovascular: No: Chest Pain, Palpitations Gastrointestinal: No: Nausea, Vomiting, Abdominal Pain Objective Exam Vital Signs Vital Signs Date Time Temp Pulse Resp B/P (MAP) Pulse Ox O2 Delivery O2 Flow Rate FiO2 03/25/23 11:18 90 Room Air 03/25/23 08:00 114 117/65 (82) 2.00 03/25/23 03:55 36.7 18 03/24/23 04:00 40 Capillary Refill : Less Than 3 Seconds General Appearance: No Apparent Distress, WD/WN Respiratory: Chest Non Tender, Lungs Clear, Normal Breath Sounds, No Accessory Muscle Use, No Respiratory Distress Cardiovascular: Irregularly Irregular, Tachycardia Gastrointestinal: Non Tender, Soft Extremity: Normal Capillary Refill, Pedal Edema (1+ b/l LE, improved from yesterday) Neurologic/Psychiatric: Alert, Oriented x3, Normal Mood/Affect Skin: Normal Color, Warm/Dry Results/Procedures Lab Laboratory Tests 03/25/23 03:55 Patient resulted labs reviewed. Imaging: Reviewed Imaging Report Assessment/Plan Assessment and Plan Assess & Plan/Chief Complaint Acute on chronic HFrEF Orthopnea PND Echo 03/24/23 with EF 30-35%, slightly decreased from previous 2017 echo with 40% EF Left heart cath today Diuretics 40mg qd Started on Entresto, Carvedilol, Spironolactone, Jardiance New onset Afib with RVR Rate control with Diltiazem Cardio appreciated Elevated troponins T2 NSTEMI possible given increased demand Elevated d-dimer CTA 03/24 without PE Mediastinal LAD Seen on CTA 03/24, no mass Discussed with pt that this will need to be monitored, could potentially need bronchoscopy with biopsy in the future if growing HTN History CAD Tobacco Abuse DVT prophylaxis: Lovenox D/c per cardiology recommendation Discussed he should establish with a PCP Clinical Quality Measures AMI/AHF: ASA po Prior to arrival: No MEGHNA GONZALES MD 03/25/231951: Subjective HPI/CC On Admission Date Seen by Provider: March 25, 2023 Time Seen by Provider: 09:30 Objective Results/Procedures Imaging: Reviewed Imaging Report Assessment/Plan Assessment and Plan Assess & Plan/Chief Complaint Left heart cath today. Multivessel CAD identified necessitating transfer. Dr. Gage has arranged transfer to [place]. Diagnosis/Problems Diagnosis/Problems (1) Multiple vessel coronary artery disease Status: Acute (2) Acute on chronic heart failure with reduced ejection fraction and diastolic dysfunction Status: Acute (3) Atrial fibrillation with rapid ventricular response Status: Acute (4) Mediastinal lymphadenopathy Status: Acute (5) Obesity Status: Chronic (6) Heavy smoker (more than 20 cigarettes per day) Status: Acute Supervisory-Addendum Brief Verification & Attestation Participated in pt care: history, MDM, physical Personally performed: exam, history, MDM, supervision of care Care discussed with: Medical Student Procedures: n/a Results interpretation: Verified all documentation A medical student performed and documented this service in my presence. I reviewed and verified all information documented by the medical student and made modifications to such information, when appropriate. I personally performed the physical exam and medical decision making. ELIEL PATRICK March 25, 2023 09:28 MEGHNA GONZALES MD March 25, 2023 19:52
[2023-03-25] MEDS ORDERED: LIDOCAINE 1% INJ 20 ML VIAL ONE (10:35)
[2023-03-25] MEDS ORDERED: HEParin (CATH LAB) 2,000 ML IV ONE (10:36)
[2023-03-25] MEDS ORDERED: fentaNYL INJ 100 MCG/2 ML AMP ONE (13:39)
[2023-03-25] MEDS ORDERED: MIDAZOLAM 5 MG/5 ML (VERSED) VIAL ONE (13:39)
[2023-03-25] MEDS ORDERED: NS IV 1000 ML 1,000 ML ONE (14:04)
--- NOTE | 2023-03-25 14:51 | Cardiac Cath Report ---
CARDIAC CATHETERIZATION DATE OF PROCEDURE: 03-25-23 INDICATION: Ischemic dilated cardiomyopathy, elevated troponin, acute HFrEF HISTORY: The patient is a 67 year old male with ischemic dilated cardiomyopathy, elevated troponin, acute HFrEF PROCEDURES PERFORMED: 1. LHC; 2. Cor Angio PROCEDURE DESCRIPTION: After informed consent and in the fasting state, left heart catheterization was performed through the R femoral artery utilizing a 5 [place] system by percutaneous approach. JL4 for L cor angio, JR4 for R cor angio, Pigtail for LHC and LV angio. HEMODYNAMICS: LVEDP 26 mmHg; no significant pressure gradient on pull back across the aortic valve LV ANGIO: RAMIREZ projection only; inferior akinesis, global hypokinesis, LVEF 15 - 20% CORONARY ANGIOGRAPHY: Left main coronary artery: up to 70-80 mid and distal Left anterior descending coronary artery: 80% ostial and 80% instent (in prox and mid LAD) Left circumflex coronary artery: dominant artery, patent stent in mid LCx; patent stent in prox OM1 with approx 50% stenosis prox to the stented segment of OM1 Right coronary artery: nondominant with diffuse, moderate disease IMPRESSION: 1. Multivessel CAD. 70-80% mid and distal LMCA, 80% ostial LAD, 80% instent in mid LAD, patent stent in mid LCx, 50-60% ostial and prox OM1, patent stent in prox and mid OM1, nondominant RCA with moderate disease that is diffuse 2. LVEDP 26 mmHg 3. Inferior akinesis; global hypokinesis 4. LVEF 15 - 20% ERIKA PARRA MD FACP [facility] March 25, 2023 14:51
--- NOTE | 2023-03-25 14:56 | Progress Note - Cardiology ---
Cardiology SOAP Progress Note Subjective: Shortness of breath better No cp or palp or syncope No n/v/d Gen weakness No focal weakness Objective: I&O/Vital Signs 03/25/23 03/25/23 03/25/23 03/25/23 03:55 03:55 06:46 07:15 Temp 36.7 Pulse 88 96 Resp 18 B/P (MAP) 95/70 (78) Pulse Ox 95 95 95 O2 Delivery Nasal Cannula Nasal Cannula Nasal Cannula O2 Flow Rate 2.00 2.00 2.00 03/25/23 03/25/23 03/25/23 08:00 11:18 12:41 Pulse 114 96 B/P (MAP) 117/65 (82) Pulse Ox 94 90 O2 Delivery Nasal Cannula Room Air O2 Flow Rate 2.00 03/25/23 00:00 Intake Total 1600 ml Output Total 1925 ml Balance -325 ml Weight (Pounds): 213 Weight (Ounces): 8.0 Weight (Calculated Kilograms): 96.098279 Constitutional: AAO x 3, well-developed, well-nourished Respiratory: No accessory muscle use; chest expansion is symmetric, chest is bilaterally symmetric, other (good, bilateral air entry; basal coarse and fine crackles) Cardiovascular: irregularly irregular, S1 and S2, systolic murmur (soft DONALD at card base) Gastrointestional: No tender; distended; No guarding, No rebound; audible bowel sounds Extremities: swelling (mild, bilateral leg edema); No clubbing, No cyanosis Neurologic/Psychiatric: oriented x 3, other (moves all limbs equally) Skin: No rash on exposed areas, No ulcerations on exposed areas Results/Procedures: Labs Laboratory Tests 03/25/23 03:55: White Blood Count 9.0, Red Blood Count 4.69, Hemoglobin 14.0, Hematocrit 42, Mean Corpuscular Volume 89, Mean Corpuscular Hemoglobin 30, Mean Corpuscular Hemoglobin Concent 34, Red Cell Distribution Width 13.5, Platelet Count 184, Mean Platelet Volume 10.4, Immature Granulocyte % (Auto) 0, Neutrophils (%) (Auto) 55, Lymphocytes (%) (Auto) 32, Monocytes (%) (Auto) 10, Eosinophils (%) (Auto) 2, Basophils (%) (Auto) 1, Neutrophils # (Auto) 4.9, Lymphocytes # (Auto) 2.9, Monocytes # (Auto) 0.9, Eosinophils # (Auto) 0.2, Basophils # (Auto) 0.1, Immature Granulocyte # (Auto) 0.0, Sodium Level 136, Potassium Level 3.8, Chloride Level 101, Carbon Dioxide Level 23, Anion Gap 12, Blood Urea Nitrogen 28H, Creatinine 0.81, Estimat Glomerular Filtration Rate 97, BUN/Creatinine Ratio 35, Glucose Level 125H, Calcium Level 8.2L, Corrected Calcium 8.7, Phosphorus Level 3.8, Magnesium Level 1.9, Total Bilirubin 1.2H, Aspartate Amino Transf (AST/SGOT) 19, Alanine Aminotransferase (ALT/SGPT) 39, Alkaline Phosphatase 52, Total Protein 6.1L, Albumin 3.4 Microbiology 03/24/23 MRSA Screen - Final, Complete MRSA not isolated Laboratory Tests 03/24/23 00:17 03/24/23 04:45 03/25/23 03:55 A/P: Assessment: Ac HFrEF - Echo on 03-24-23: LVEF 30-35%, anteroapical akinesis, anteroseptal and anterolateral hypokinesis, mild to mod MR, mod to severe enlargement of LA, PASP could not be reliably estimated A Fib of unknown age, associated with RVR, currently controlled CAD - Last card cath in 2015 (Dr Catrer): LMCA ok, LAD 50% ostial, patent stens in pr ox and mid LAD, occluded mid LCx treated with 2.5 x 20 Promus stent, severe disease of OM 1 treated with 2.25 x 24 Promus stent, RCA nondominant and with mod disease, LV gram showed inf hypokinesis and LVEF 40% - Card cath on 03-25-23: Multivessel CAD. 70-80% mid and distal LMCA, 80% ostial LAD, 80% instent in mid LAD, patent stent in mid LCx, 50-60% ostial and prox OM1, patent stent in prox and mid OM1, nondominant RCA with moderate disease that is diffuse. LVEDP 26 mmHg. Inferior akinesis; global hypokinesis. LVEF 15 - 20% Bulky mediastinal and bilateral hilar lymphadenopathy w/o primary lung mass; managed by the Hospitalist svce (Dr Mercado) Plan: * Continue to treat cardiomyopathy and CHF with bb, Entresto, spironolactone and SGLT-2 inhib as tolerated * Continue ASA and enoxaparin * Would need LMCA intervention that would need surgical back up. Cannot be performed at this institution. I called Dr. Quintero of interventional cardiology at [facility] and spoke with him. He has kindly accepted the patient in transfer for LMCA intervention. I have spoken with Mr Warner and his family. They understand and agree Clinical Quality Measures AMI/AHF: ASA po Prior to arrival: ERIAK Weir MD FACP FAC [facility] March 25, 2023 14:56
[2023-03-25] MEDS: dilTIAZem DRIP 125 MG/125 ML DRIP IV SCH (23:14)
[2023-03-26] MEDS: RT-ALBUTEROL/IPRATROPIUM 3 ML (DUONEB) VIAL INH SCH (02:37)
[2023-03-26 02:45] VITALS: BP 93/60
[2023-03-26] MEDS ORDERED: RT-ALBUTEROL/IPRATROPIUM 3 ML (DUONEB) VIAL INH PRN (03:00)
[2023-03-26 04:15] LABS: BASOPHILS % (AUTO) 0 % (0-10); EOSINOPHILS # (AUTO) 0.2 10^3/uL (0.0-0.3); EOSINOPHILS % (AUTO) 2 % (0-10); HEMATOCRIT 44 % (40-54); HEMOGLOBIN 14.9 g/dL (13.3-17.7); LYMPHOCYTES # (AUTO) 2.8 10^3/uL (1.0-4.0); LYMPHOCYTES % (AUTO) 28 % (12-44); MEAN CORPUSCULAR HEMOGLOBIN 30 pg (25-34); MEAN CORPUSCULAR HGB CONC 34 g/dL (32-36); MEAN CORPUSCULAR VOLUME 89 fL (80-99); MEAN PLATELET VOLUME 10.7 fL (9.0-12.2); MONOCYTES % (AUTO) 10 % (0-12); NEUTROPHILS % (AUTO) 60 % (42-75); PLATELET COUNT 194 10^3/uL (130-400)
[2023-03-26 04:20] LABS: ALBUMIN 3.4 GM/DL (3.2-4.5); POTASSIUM 4.3 MMOL/L (3.6-5.0)
[2023-03-26 04:21] LABS: CALCIUM 8.6 MG/DL (8.5-10.1)
[2023-03-26 04:23] LABS: TOTAL PROTEIN 6.3 GM/DL (6.4-8.2)
[2023-03-26 04:24] LABS: BILIRUBIN,TOTAL 0.8 MG/DL (0.1-1.0)
[2023-03-26 04:26] LABS: CREATININE SERUM 0.92 MG/DL (0.60-1.30); PHOSPHORUS 4.7 MG/DL (2.3-4.7)
[2023-03-26 04:29] LABS: MAGNESIUM 2.4 MG/DL (1.6-2.4)
[2023-03-26] MEDS: POTASSIUM CL 10MEQ/50ML IVPB 50 ML IV SCH (04:38)
[2023-03-26] MEDS: CATHETER FLUSH 10 ML SYR IVP SCH (04:39)
[2023-03-26] MEDS: MAGNESIUM 1 GM/100 ML IVPB 100 ML IV SCH (04:39)
[2023-03-26] MEDS: KCL 20 MEQ TAB (K-DUR) PO SCH (04:39)
[2023-03-26] MEDS ORDERED: RT-ALBUTEROL/IPRATROPIUM 3 ML (DUONEB) VIAL INH SCH (08:00)
[2023-03-26] MEDS: SPIRONOLACTONE 25 MG (ALDACTONE) TAB PO SCH (08:05)
[2023-03-26] MEDS: EMPAGLIFLOZIN 10 MG TABLET (JARDIANCE) PO SCH (08:05)
[2023-03-26] MEDS: SACUBITRIL/VALSARTAN 24/26 MG (ENTRESTO) TABLET PO SCH (08:05)
[2023-03-26] MEDS: FUROSEMIDE 40 MG (LASIX) TAB PO SCH (08:05)
[2023-03-26] MEDS: ASPIRIN E.C. 81 MG (ECOTRIN) TAB PO SCH (08:05)
--- NOTE | 2023-03-26 08:33 | Progress Note - Hospitalist ---
[facility] 0833: Subjective HPI/CC On Admission This is a 67 y/o M current smoker with PMH HFrEF and multiple cardiac stents who presented to the ED 03/24 with SOB for the past few months that has been worsening the past 4 days. He had increased trouble breathing last night so decided to come to ER. He did not have CP at the time of arrival but notes CP started after he was given medication to slow his heart rate in the ED. CP was in the upper left chest and was sharp but not severe only a 1-2/10 in severity. He notes it was different from the pain he had with previous MIs. Labs were notable for BNP 1005, troponin at 0.092. CXR with enlarged heart and moderate to severe pulmonary edema. He was unable to lay flat for CTA that was ordered so it was not performed. EKG with Afib with RVR, pt reports he has never had Afib before. He was started on diltiazem and has not converted to sinus though dose has been limited by low blood pressures. Patient reports he only takes a baby aspirin daily and occasionally uses diuretics when he feels he needs them. Has not seen a physician for at least a few years. Last echo in 2017 with EF 40%. Today's echo with LVEF 30-35%, anteroapical akinesis, anteroseptal and anterolateral hypokinesis, mild to mod MR, mod to severe enlargement of LA, PASP could not be reliably estimated. Cardiology recommends heart cath. Subjective/Events-last exam Today patient feels he is doing well. No CP or SOB. He does still have a mild cough. Patient being transferred to [facility]. Review of Systems General: No Chills, No Night Sweats Pulmonary: Cough; No Pleuritic Chest Pain Cardiovascular: No: Chest Pain, Edema Gastrointestinal: No: Nausea, Vomiting Objective Exam Vital Signs Vital Signs Date Time Temp Pulse Resp B/P (MAP) Pulse Ox O2 Delivery O2 Flow Rate FiO2 03/26/23 09:15 95 Nasal Cannula 2.00 03/26/23 07:48 36.3 100 18 111/82 (92) 03/26/23 02:45 28 Capillary Refill : Less Than 3 Seconds General Appearance: No Apparent Distress, WD/WN Respiratory: Chest Non Tender, Normal Breath Sounds, No Accessory Muscle Use, No Respiratory Distress Cardiovascular: Irregularly Irregular, Tachycardia Extremity: Pedal Edema (minimal b/l LE) Neurologic/Psychiatric: Alert, No Motor/Sensory Deficits Skin: Normal Color, Warm/Dry Results/Procedures Lab Laboratory Tests 03/26/23 03:45 Patient resulted labs reviewed. Imaging: Reviewed Imaging Report Assessment/Plan Assessment and Plan Assess & Plan/Chief Complaint Acute on chronic HFrEF Orthopnea PND Echo 03/24/23 with EF 30-35%, slightly decreased from previous 2017 echo with 40% EF Left heart cath with multivessel disease- Dr. Gage arranged transfer to [place] for intervention Diuretics 40mg qd Continue Entresto, Carvedilol, Spironolactone, Jardiance New onset Afib with RVR Rate control with Diltiazem Cardio appreciated Elevated troponins T2 NSTEMI possible given increased demand Elevated d-dimer CTA 03/24 without PE Mediastinal LAD Seen on CTA 03/24, no mass Discussed with pt that this will need to be monitored, could potentially need bronchoscopy with biopsy in the future if growing HTN History CAD Tobacco Abuse DVT prophylaxis: Lovenox Transfer to [place] Clinical Quality Measures AMI/AHF: ASA po Prior to arrival: No MEGHNA GONZALES MD 03/26/23 1647: Subjective HPI/CC On Admission Date Seen by Provider: March 26, 2023 Time Seen by Provider: 10:30 Assessment/Plan Assessment and Plan Assess & Plan/Chief Complaint Transferred to [place] for further cardiology/cardiothoracic surgery intervention. Diagnosis/Problems Diagnosis/Problems (1) Multiple vessel coronary artery disease Status: Acute (2) Acute on chronic heart failure with reduced ejection fraction and diastolic dysfunction Status: Acute (3) Atrial fibrillation with rapid ventricular response Status: Acute (4) Mediastinal lymphadenopathy Status: Acute Supervisory-Addendum Brief Verification & Attestation Participated in pt care: history, MDM, physical Personally performed: exam, history, MDM, supervision of care Care discussed with: Medical Student Procedures: n/a Results interpretation: Verified all documentation A medical student performed and documented this service in my presence. I reviewed and verified all information documented by the medical student and made modifications to such information, when appropriate. I personally performed the physical exam and medical decision making. ELIEL PATRICK March 26, 2023 08:33 MEGHNA GONZALES MD March 26, 2023 16:47
--- NOTE | 2023-03-26 08:58 | Progress Note - Cardiology ---
Cardiology SOAP Progress Note Subjective: Sitting up on the side of the bed Family x 1 at the bedside No c/o CP, SOB, palpitations, syncope, near syncope or groin discomfort Objective: I&O/Vital Signs 03/25/23 03/25/23 03/25/23 03/26/23 21:18 23:00 23:10 01:00 Temp 36.7 Pulse 87 103 Resp 18 B/P (MAP) 93/60 (71) Pulse Ox 98 95 95 O2 Delivery Room Air Nasal Cannula Nasal Cannula O2 Flow Rate 2.00 2.00 03/26/23 03/26/23 03/26/23 03/26/23 02:38 02:45 03:49 06:54 Temp 36.7 36.5 Pulse 103 95 100 Resp 18 B/P (MAP) 92/66 (75) Pulse Ox 95 95 O2 Delivery Nasal Cannula Nasal Cannula O2 Flow Rate 2.00 2.00 FiO2 28 03/26/23 07:48 Temp 36.3 Pulse 100 Resp 18 B/P (MAP) 111/82 (92) Pulse Ox 92 O2 Delivery Nasal Cannula O2 Flow Rate 2.00 03/25/23 23:59 Intake Total 375 ml Output Total 550 ml Balance -175 ml Weight (Pounds): 213 Weight (Ounces): 8.0 Weight (Calculated Kilograms): 96.333156 Side: right Condition: DP/PT pulses palpable, extremity w/d/p Bruising: mild bruising Constitutional: AAO x 3, well-developed, well-nourished Respiratory: No accessory muscle use; chest expansion is symmetric, chest is bilaterally symmetric, other (good, bilateral air entry; basal coarse and fine crackles) Cardiovascular: irregularly irregular, S1 and S2, systolic murmur (soft DONALD at card base) Gastrointestional: No tender; distended; No guarding, No rebound; audible bowel sounds Extremities: swelling (mild, bilateral leg edema); No clubbing, No cyanosis Neurologic/Psychiatric: oriented x 3, other (moves all limbs equally) Skin: No rash on exposed areas, No ulcerations on exposed areas Results/Procedures: Labs Laboratory Tests 03/26/23 03:45: White Blood Count 10.0, Red Blood Count 4.94, Hemoglobin 14.9, Hematocrit 44, Mean Corpuscular Volume 89, Mean Corpuscular Hemoglobin 30, Mean Corpuscular Hemoglobin Concent 34, Red Cell Distribution Width 13.7, Platelet Count 194, Mean Platelet Volume 10.7, Immature Granulocyte % (Auto) 0, Neutrophils (%) (Auto) 60, Lymphocytes (%) (Auto) 28, Monocytes (%) (Auto) 10, Eosinophils (%) (Auto) 2, Basophils (%) (Auto) 0, Neutrophils # (Auto) 6.0, Lymphocytes # (Auto) 2.8, Monocytes # (Auto) 1.0, Eosinophils # (Auto) 0.2, Basophils # (Auto) 0.0, Immature Granulocyte # (Auto) 0.0, Sodium Level 137, Potassium Level 4.3, Chloride Level 102, Carbon Dioxide Level 24, Anion Gap 11, Blood Urea Nitrogen 23H, Creatinine 0.92, Estimat Glomerular Filtration Rate 91, BUN/Creatinine Ratio 25, Glucose Level 110H, Calcium Level 8.6, Corrected Calcium 9.1, Phosphorus Level 4.7, Magnesium Level 2.4, Total Bilirubin 0.8, Aspartate Amino Transf (AST/SGOT) 16, Alanine Aminotransferase (ALT/SGPT) 30, Alkaline Anita sphatase 52, Total Protein 6.3L, Albumin 3.4 Microbiology 03/24/23 MRSA Screen - Final, Complete MRSA not isolated A/P: Assessment: Ac HFrEF - Echo on 03-24-23: LVEF 30-35%, anteroapical akinesis, anteroseptal and anterolateral hypokinesis, mild to mod MR, mod to severe enlargement of LA, PASP could not be reliably estimated A Fib of unknown age, associated with RVR, currently controlled CAD - Last card cath in 2015 (Dr Carter): LMCA ok, LAD 50% ostial, patent stens in prox and mid LAD, occluded mid LCx treated with 2.5 x 20 Promus stent, severe disease of OM 1 treated with 2.25 x 24 Promus stent, RCA nondominant and with mod disease, LV gram showed inf hypokinesis and LVEF 40% - Card cath on 03-25-23: Multivessel CAD. 70-80% mid and distal LMCA, 80% ostial LAD, 80% instent in mid LAD, patent stent in mid LCx, 50-60% ostial and prox OM1, patent stent in prox and mid OM1, nondominant RCA with moderate disease that is diffuse. LVEDP 26 mmHg. Inferior akinesis; global hypokinesis. LVEF 15 - 20% Bulky mediastinal and bilateral hilar lymphadenopathy w/o primary lung mass; managed by the Hospitalist svce (Dr Mercado) Plan: * Continue to treat cardiomyopathy and CHF with bb, Entresto, spironolactone and SGLT-2 inhib as tolerated * Continue ASA and enoxaparin * Would need LMCA intervention that would need surgical back up. Cannot be performed at this institution. I called Dr. Quintero of interventional cardiology at [facility] and spoke with him. He has kindly accepted the patient in transfer for LMCA intervention. I have spoken with Mr Warner and his family. They understand and agree. Continuing to wait on an available bed at [place] Clinical Quality Measures AMI/AHF: ASA po Prior to arrival: BREANA Mijares March 26, 2023 08:58
--- NOTE | 2023-03-26 13:11 | Conscious Sedation/ASA ---
03/26/23 1311: Moderate Sedation PreProcedure ASA Score Airway Lungs Heart ASA score ASA 1: a normal healthy patient ASA 2: a patient with a mild systemic disease (mid diabetes, controlled hypertension, obesity ASA 3: a patient with a severe systemic disease that limits activity (angina, COPD, prior Myocardial infarction) ASA 4: a patient with an incapacitating disease that is a constant threat to life (CHF, renal failure) ASA 5: a moribund patient not expected to survive 24 hrs. (ruptured aneurysm) ASA 6: a declared brain- patient whose organs are being harvested. For emergent operations, add the letter E after the classification Sedation Plan The patient is an appropriate candidate to undergo the planned procedure, sedation, and anesthesia. The patient immediately re-assessed prior to indication. ERIKA PARRA MD [facility] 03/26/23 1336: Moderate Sedation PreProcedure ASA Score 3 Mallampati Classification Grade 2 Sedation Plan Analgesia, Amnesia, Plan communicated to team members March 26, 2023 13:11 ERIKA PARRA MD [facility] March 26, 2023 13:36
--- NOTE | 2023-03-26 13:15 | Progress Note - Cardiology ---
Cardiology SOAP Progress Note Subjective: Gen weakness and malaise No cp or palp or syncope No shortness of breath at rest No n/v/d No focal weakness No swelling Objective: I&O/Vital Signs 03/26/23 03/26/23 03/26/23 03/26/23 02:38 02:45 03:49 06:54 Temp 36.7 36.5 Pulse 103 95 100 Resp 18 B/P (MAP) 92/66 (75) Pulse Ox 95 95 O2 Delivery Nasal Cannula Nasal Cannula O2 Flow Rate 2.00 2.00 FiO2 28 03/26/23 03/26/23 03/26/23 07:48 08:00 09:15 Temp 36.3 Pulse 100 Resp 18 B/P (MAP) 111/82 (92) Pulse Ox 92 92 95 O2 Delivery Nasal Cannula Nasal Cannula Nasal Cannula O2 Flow Rate 2.00 2.00 2.00 03/25/23 23:59 Intake Total 375 ml Output Total 550 ml Balance -175 ml Weight (Pounds): 213 Weight (Ounces): 8.0 Weight (Calculated Kilograms): 96.271104 Side: right Condition: DP/PT pulses palpable, extremity w/d/p Bruising: mild bruising Constitutional: AAO x 3, well-developed, well-nourished Respiratory: No accessory muscle use; chest expansion is symmetric, chest is bilaterally symmetric, other (good, bilateral air entry; basal coarse and fine crackles) Cardiovascular: irregularly irregular, S1 and S2, systolic murmur (soft DONALD at card base) Gastrointestional: No tender; distended; No guarding, No rebound; audible bowel sounds Extremities: swelling (mild, bilateral leg edema); No clubbing, No cyanosis Neurologic/Psychiatric: oriented x 3, other (moves all limbs equally) Skin: No rash on exposed areas, No ulcerations on exposed areas Results/Procedures: Labs Laboratory Tests 03/26/23 03:45: White Blood Count 10.0, Red Blood Count 4.94, Hemoglobin 14.9, Hematocrit 44, Mean Corpuscular Volume 89, Mean Corpuscular Hemoglobin 30, Mean Corpuscular Hemoglobin Concent 34, Red Cell Distribution Width 13.7, Platelet Count 194, Mean Platelet Volume 10.7, Immature Granulocyte % (Auto) 0, Neutrophils (%) (Auto) 60, Lymphocytes (%) (Auto) 28, Monocytes (%) (Auto) 10, Eosinophils (%) (Auto) 2, Basophils (%) (Auto) 0, Neutrophils # (Auto) 6.0, Lymphocytes # (Auto) 2.8, Monocytes # (Auto) 1.0, Eosinophils # (Auto) 0.2, Basophils # (Auto) 0.0, Immature Granulocyte # (Auto) 0.0, Sodium Level 137, Potassium Level 4.3, Chloride Level 102, Carbon Dioxide Level 24, Anion Gap 11, Blood Urea Nitrogen 23H, Creatinine 0.92, Estimat Glomerular Filtration Rate 91, BUN/Creatinine Ratio 25, Glucose Level 110H, Calcium Level 8.6, Corrected Calcium 9.1, Phosphorus Level 4.7, Magnesium Level 2.4, Total Bilirubin 0.8, Aspartate Amino Transf (AST/SGOT) 16, Alanine Aminotransferase (ALT/SGPT) 30, Alkaline Phosphatase 52, Total Protein 6.3L, Albumin 3.4 Microbiology 03/24/23 MRSA Screen - Final, Complete MRSA not isolated A/P: Assessment: Ac HFrEF - Echo on 03-24-23: LVEF 30-35%, anteroapical akinesis, anteroseptal and anterolateral hypokinesis, mild to mod MR, mod to severe enlargement of LA, PASP could not be reliably estimated A Fib of unknown age, associated with RVR, currently controlled CAD - Last card cath in 2015 (Dr Carter): LMCA ok, LAD 50% ostial, patent stens in prox and mid LAD, occluded mid LCx treated with 2.5 x 20 Promus stent, severe disease of OM 1 treated with 2.25 x 24 Promus stent, RCA nondominant and with mod disease, LV gram showed inf hypokinesis and LVEF 40% - Card cath on 03-25-23: Multivessel CAD. 70-80% mid and distal LMCA, 80% ostial LAD, 80% instent in mid LAD, patent stent in mid LCx, 50-60% ostial and prox OM1, patent stent in prox and mid OM1, nondominant RCA with moderate disease that is diffuse. LVEDP 26 mmHg. Inferior akinesis; global hypokinesis. LVEF 15 - 20% Bulky mediastinal and bilateral hilar lymphadenopathy w/o primary lung mass; managed by the Hospitalist svce (Dr Mercado) Plan: * Continue to treat cardiomyopathy and CHF with bb, Entresto, spironolactone and SGLT-2 inhib as tolerated * Continue ASA and enoxaparin * Would need LMCA intervention that would need surgical back up. Cannot be performed at this institution. I called Dr. Quintero of interventional cardiology at [facility] and spoke with him. He has kindly accepted the patient in transfer for LMCA intervention. I have spoken with Mr Warner and his family. They understand and agree. Continuing to wait on an available bed at [place] Clinical Quality Measures AMI/AHF: ASA po Prior to arrival: ERIKA Weir MD FACP FAC CCDS March 26, 2023 13:15
--- NOTE | 2023-03-26 16:46 | Discharge Summary ---
Discharge Summary Hospital Course Problems/Dx: (1) Multiple vessel coronary artery disease Status: Acute (2) Acute on chronic heart failure with reduced ejection fraction and diastolic dysfunction Status: Acute (3) Atrial fibrillation with rapid ventricular response Status: Acute (4) Mediastinal lymphadenopathy Status: Acute (5) Obesity Status: Chronic (6) Heavy smoker (more than 20 cigarettes per day) Status: Acute Hospital Course Date of Admission: March 24, 2023 at 02:01 Admission Diagnosis : Acute on chronic HFrEF, AFib with RVR Family Physician/Provider: [facility]om[facility]Local Physician Date of Discharge: 03/26/23 Discharge Diagnosis: Acute on chronic HFrEF, AFib with RVR, multivessel CAD Hospital Course: Timmy Truong is a 67 year old male who presented with shortness of breath and was admitted with acute on chronic HFrEF. He has not been taking any medications and has not followed with a physician. Cardiology was consulted and assisted with his care. His last echo was 6 years ago and showed EF 40%. A repeat echo showed EF 30-35%. He was started on new medications for heart failure. He had a mildly elevated troponin. He has a history of CAD with stent placment. He underwent a left heart cath which showed multivessel CAD as well as EF 10-15%. He was transferred to [place] for intervention requiring surgery back up. His course wa s complicated by new onset AFib with RVR. He was started on Diltiazem and therapeutic Lovenox. He was also found to have mediastinal lymphadenopathy of unknown significance which will need further monitoring and investigation. He plans to establsih with a PCP at the [facility]. Labs and Pending Lab Test: Laboratory Tests 03/26/23 03:45: White Blood Count 10.0, Red Blood Count 4.94, Hemoglobin 14.9, Hematocrit 44, Mean Corpuscular Volume 89, Mean Corpuscular Hemoglobin 30, Mean Corpuscular Hemoglobin Concent 34, Red Cell Distribution Width 13.7, Platelet Count 194, Mean Platelet Volume 10.7, Immature Granulocyte % (Auto) 0, Neutrophils (%) (Auto) 60, Lymphocytes (%) (Auto) 28, Monocytes (%) (Auto) 10, Eosinophils (%) (Auto) 2, Basophils (%) (Auto) 0, Neutrophils # (Auto) 6.0, Lymphocytes # (Auto) 2.8, Monocytes # (Auto) 1.0, Eosinophils # (Auto) 0.2, Basophils # (Auto) 0.0, Immature Granulocyte # (Auto) 0.0, Sodium Level 137, Potassium Level 4.3, Chloride Level 102, Carbon Dioxide Level 24, Anion Gap 11, Blood Urea Nitrogen 23H, Creatinine 0.92, Estimat Glomerular Filtration Rate 91, BUN/Creatinine Ratio 25, Glucose Level 110H, Calcium Level 8.6, Corrected Calcium 9.1, Phosphor us Level 4.7, Magnesium Level 2.4, Total Bilirubin 0.8, Aspartate Amino Transf (AST/SGOT) 16, Alanine Aminotransferase (ALT/SGPT) 30, Alkaline Phosphatase 52, Total Protein 6.3L, Albumin 3.4 Microbiology 03/24/23 MRSA Screen - Final, Complete MRSA not isolated Home Meds Active Reported Aspirin EC (Aspirin) 81 Mg Tablet.dr 81 Mg PO HS Assessment/Pt Instructions Transferred to [place] for cardiology intervention, possible bypass surgery Discharge Planning: >30 minutes discharge planning Discharge Instructions Discharge Diet: No Restrictions Activity as Tolerated: Yes Consultations Cardiology Discharge Physical Examination Vital Signs Vital Signs Date Time Temp Pulse Resp B/P (MAP) Pulse Ox O2 Delivery O2 Flow Rate FiO2 03/26/23 09:15 95 Nasal Cannula 2.00 03/26/23 07:48 36.3 100 18 111/82 (92) 03/26/23 02:45 28 Allergies: Coded Allergies: amoxicillin (Verified Allergy, Unknown, 03/06/16) clavulanic acid (Verified Allergy, Unknown, 03/06/16) ticagrelor (Verified Allergy, Unknown, 09/09/19) Copy Copies To 1: [facility] Discharge Summary Date of Admission March 24, 2023 at 02:01 Date of Discharge March 26, 2023 at 12:00 Discharge Date: March 26, 2023 Discharge Time: 12:00 Admission Diagnosis AFib with RVR Consults/Procedures Consulations Cardiology Procedures Left heart cath Discharge Diagnosis Multivessal CAD, acute on chronic HFrEF, AFib with RVR (1) Multiple vessel coronary artery disease Status: Acute (2) Acute on chronic heart failure with reduced ejection fraction and diastolic dysfunction Status: Acute (3) Atrial fibrillation with rapid ventricular response Status: Acute (4) Mediastinal lymphadenopathy Status: Acute (5) Obesity Status: Chronic (6) Heavy smoker (more than 20 cigarettes per day) Status: Acute Clinical Quality Measures AMI/AHF: ASA po Prior to arrival: MEGHNA Stokes MD March 26, 2023 16:46
== END 2023-03-26 12:00 | disposition short-term general hospital (02) | DRG 286 ==
LOC: EDUNIT# 00:11 → ER 00:18 → ICU 02:01
PROVIDERS: ADMIT Family Medicine; ATTEND Internal Medicine
PROC: 5A09357 Assistance with Respiratory Ventilation, Less than 24 Consecutive Hours, Continuous Positive Airway Pressure (ICD-10-PCS; 2023-03-24)
PROC: 4A023N7 Measurement of Cardiac Sampling and Pressure, Left Heart, Percutaneous Approach (ICD-10-PCS; principal; 2023-03-25)
PROC: B2111ZZ Fluoroscopy of Multiple Coronary Arteries using Low Osmolar Contrast (ICD-10-PCS; 2023-03-25)
DX: I11.0 Hypertensive heart disease with heart failure (principal); I50.23 Acute on chronic systolic (congestive) heart failure; J96.01 Acute respiratory failure with hypoxia; I25.10 Atherosclerotic heart disease of native coronary artery without angina pectoris; I48.91 Unspecified atrial fibrillation; R59.1 Generalized enlarged lymph nodes; E66.9 Obesity, unspecified; F17.210 Nicotine dependence, cigarettes, uncomplicated; R77.8 Other specified abnormalities of plasma proteins; Z95.5 Presence of coronary angioplasty implant and graft; Z79.82 Long term (current) use of aspirin; Z79.899 Other long term (current) drug therapy; I25.2 Old myocardial infarction; E78.00 Pure hypercholesterolemia, unspecified; J44.9 Chronic obstructive pulmonary disease, unspecified; Z91.199 Patient's noncompliance with other medical treatment and regimen due to unspecified reason; Z68.30 Body mass index [BMI] 30.0-30.9, adult
CPT/HCPCS: 36415; 71045; 71275; 80053; 80061; 82150; 82550; 82553; 82805; 83690; 83735; 83874; 83880; 84100; 84484; 85025; 85379; 85610; 85730; 87081; 93005; 93041; 93306; 93458; 94640; 94660; 94760

== ENCOUNTER → 2023-04-11 | Day surgery (SDC) | payer MEDICARE ==
[~2023-04-11] VITALS: Ht 177 cm; Wt 95.3 kg
[2023-04-11] VITALS (8 sets, daily range): BP systolic 93–130; BP diastolic 60–99
[~2023-04-11] MED LIST changes: +AMIO200T65 PO; +APIX5TAB PO; +CARV3.122 PO; +FURO40TA4 PO; +LOSA25TA41 PO; +MIDAZOLAM 2 MG/2 ML (VERSED) VIAL ONE; +NS IV 1000 ML 1,000 ML IV ONE; +NS IV 1000 ML 1,000 ML IV SCH; +NS IV 1000 ML 1,000 ML ONE; +PRAS10TA10 PO; +SPIR25TA5 PO; +proPOfol 200 MG/20 ML (DIPRIVAN) VIAL IV ONE
[2023-04-11 08:15] LABS: HEMATOCRIT 47 % (40-54); HEMOGLOBIN 15.8 g/dL (13.3-17.7); MEAN CORPUSCULAR HEMOGLOBIN 29 pg (25-34); MEAN CORPUSCULAR HGB CONC 33 g/dL (32-36); MEAN CORPUSCULAR VOLUME 88 fL (80-99); MEAN PLATELET VOLUME 10.2 fL (9.0-12.2); PLATELET COUNT 297 10^3/uL (130-400); WHITE BLOOD COUNT 11.9 10^3/uL (4.3-11.0)
[2023-04-11 08:35] LABS: INR 1.2 (0.8-1.4); PROTHROMBIN TIME PATIENT 15.2 SEC (12.2-14.7)
[2023-04-11 08:38] LABS: ALBUMIN 4.2 GM/DL (3.2-4.5); BILIRUBIN,TOTAL 0.8 MG/DL (0.1-1.0); CALCIUM 9.4 MG/DL (8.5-10.1); CREATININE SERUM 1.24 MG/DL (0.60-1.30); POTASSIUM 4.2 MMOL/L (3.6-5.0); TOTAL PROTEIN 7.6 GM/DL (6.4-8.2)
--- NOTE | 2023-04-11 09:56 | Anesthesia-General Post-Op ---
MAC Patient Condition Mental Status/LOC: Same as Preop Cardiovascular: Satisfactory Nausea/Vomiting: Absent Respiratory: Satisfactory Pain: Controlled Complications: Absent Post Op Complications Complications None Follow Up Care/Instructions Patient Instructions None needed. Anesthesiology Discharge Order Discharge Order Patient is doing well, no complaints, stable vital signs, no apparent adverse anesthesia problems. No complications reported per nursing. BERTHA WALDROP CRNA April 11, 2023 09:56
--- NOTE | 2023-04-11 17:17 | OPERATIVE REPORT ---
DATE OF SERVICE: 04/11/2023 EXTERNAL ELECTRICAL CARDIOVERSION REPORT PREOPERATIVE DIAGNOSIS: Atrial flutter. POSTOPERATIVE DIAGNOSIS: Sinus rhythm. PROCEDURE: External electrical cardioversion. INDICATIONS: The patient is a 67-year-old gentleman, with a known history of atrial fibrillation and atrial flutter, who has been recently in atrial flutter. He is fully and chronically anticoagulated without any interruptions. Informed consent was obtained for external electrical cardioversion. DESCRIPTION OF PROCEDURE: [facility] The nurse special education coordinator provided short-acting anesthesia. A 50 joules of synchronized shock was delivered through external patches. Atrial flutter converted to sinus rhythm. He tolerated the procedure well. Job ID: [id number] DocumentID: [id number] Dictated Date: 04/11/2023 08:39:35 Real Estate Office Supervisor Date: 04/11/2023 17:16:00 Dictated By: ERIKA PARRA MD; MUNA; FACP; FACC;
== END | disposition home or self-care (01) ==
LOC: SDC 07:33
PROVIDERS: ATTEND Internal Medicine Cardiovascular Disease
DX: I48.92 Unspecified atrial flutter (principal); I48.0 Paroxysmal atrial fibrillation; I50.22 Chronic systolic (congestive) heart failure; I25.5 Ischemic cardiomyopathy; I34.0 Nonrheumatic mitral (valve) insufficiency; I25.10 Atherosclerotic heart disease of native coronary artery without angina pectoris; R91.8 Other nonspecific abnormal finding of lung field; E66.9 Obesity, unspecified; Z68.30 Body mass index [BMI] 30.0-30.9, adult; Z95.5 Presence of coronary angioplasty implant and graft; Z79.899 Other long term (current) drug therapy; Z79.01 Long term (current) use of anticoagulants; F17.210 Nicotine dependence, cigarettes, uncomplicated; Z28.310 Unvaccinated for COVID-19
CPT/HCPCS: 36415; 80053; 80061; 85027; 85610; 85730; 87081; 92960; 93005

== ENCOUNTER → 2023-04-16 | Outpatient (CLI) | payer MEDICARE ==
[~2023-04-16] MED LIST changes: -MIDAZOLAM 2 MG/2 ML (VERSED) VIAL ONE; -NS IV 1000 ML 1,000 ML IV ONE; -NS IV 1000 ML 1,000 ML IV SCH; -NS IV 1000 ML 1,000 ML ONE; -proPOfol 200 MG/20 ML (DIPRIVAN) VIAL IV ONE
[2023-04-16 10:55] LABS: CALCIUM 9.4 MG/DL (8.5-10.1); CREATININE SERUM 1.16 MG/DL (0.60-1.30); POTASSIUM 4.7 MMOL/L (3.6-5.0)
== END ==
LOC: LAB 10:19
PROVIDERS: ATTEND Internal Medicine Cardiovascular Disease
DX: I48.0 Paroxysmal atrial fibrillation (principal)
CPT/HCPCS: 36415; 80048; 83735; 84443

== ENCOUNTER → 2023-05-26 | Outpatient (CLI) | payer MEDICARE ==
[~2023-05-26] MED LIST changes: +DAPA10TA PO
[2023-05-26 16:57] LABS: HEMATOCRIT 49 % (40-54); HEMOGLOBIN 16.4 g/dL (13.3-17.7); MEAN CORPUSCULAR HEMOGLOBIN 29 pg (25-34); MEAN CORPUSCULAR HGB CONC 33 g/dL (32-36); MEAN CORPUSCULAR VOLUME 87 fL (80-99); MEAN PLATELET VOLUME 10.4 fL (9.0-12.2); PLATELET COUNT 224 10^3/uL (130-400); WHITE BLOOD COUNT 9.7 10^3/uL (4.3-11.0)
[2023-05-26 17:09] LABS: ALBUMIN 4.1 GM/DL (3.2-4.5)
[2023-05-26 17:10] LABS: POTASSIUM 4.5 MMOL/L (3.6-5.0)
[2023-05-26 17:11] LABS: CALCIUM 9.3 MG/DL (8.5-10.1)
[2023-05-26 17:12] LABS: TOTAL PROTEIN 7.6 GM/DL (6.4-8.2)
[2023-05-26 17:14] LABS: BILIRUBIN,TOTAL 0.6 MG/DL (0.1-1.0)
[2023-05-26 17:16] LABS: CREATININE SERUM 1.24 MG/DL (0.60-1.30)
[2023-05-26 17:18] LABS: MAGNESIUM 2.4 MG/DL (1.6-2.4)
== END ==
LOC: LAB 16:39
PROVIDERS: ATTEND Internal Medicine Cardiovascular Disease
DX: I25.5 Ischemic cardiomyopathy (principal); I48.0 Paroxysmal atrial fibrillation; I25.10 Atherosclerotic heart disease of native coronary artery without angina pectoris
CPT/HCPCS: 36415; 80053; 83735; 85027

== ENCOUNTER → 2023-05-26 | Outpatient (CLI) | payer MEDICARE | LOC: CARD 13:12 | PROVIDERS: ATTEND Internal Medicine Cardiovascular Disease | DX: I25.5 Ischemic cardiomyopathy (principal); I25.10 Atherosclerotic heart disease of native coronary artery without angina pectoris; I51.7 Cardiomegaly | CPT/HCPCS: 93306 ==

== ENCOUNTER 2023-05-27 08:11 | Day surgery (SDC) | payer MEDICARE ==
[~2023-05-27] VITALS: Ht 177.8 cm; Wt 87.9 kg
[~2023-05-27 08:11] MED LIST changes: -DAPA10TA PO
[2023-05-27] MEDS ORDERED: NS IV 1000 ML 1,000 ML ONE (08:27)
[2023-05-27] MEDS ORDERED: NS IV 1000 ML 1,000 ML IV ONE (08:30)
[2023-05-27 08:48] VITALS: BP 123/94
[2023-05-27 08:50] LABS: HEMATOCRIT 52 % (40-54); HEMOGLOBIN 16.8 g/dL (13.3-17.7); MEAN CORPUSCULAR HEMOGLOBIN 29 pg (25-34); MEAN CORPUSCULAR HGB CONC 33 g/dL (32-36); MEAN CORPUSCULAR VOLUME 88 fL (80-99); MEAN PLATELET VOLUME 10.4 fL (9.0-12.2); PLATELET COUNT 246 10^3/uL (130-400); WHITE BLOOD COUNT 9.8 10^3/uL (4.3-11.0)
[2023-05-27] MEDS ORDERED: DAPA10TA PO (08:53)
[2023-05-27 09:01] LABS: PROTHROMBIN TIME PATIENT 13.9 SEC (12.2-14.7)
[2023-05-27 09:08] LABS: ALBUMIN 4.4 GM/DL (3.2-4.5); BILIRUBIN,TOTAL 0.6 MG/DL (0.1-1.0); CALCIUM 9.6 MG/DL (8.5-10.1); CREATININE SERUM 1.32 MG/DL (0.60-1.30); POTASSIUM 3.9 MMOL/L (3.6-5.0)
[2023-05-27] MEDS ORDERED: proPOfol 200 MG/20 ML (DIPRIVAN) VIAL IV ONE (09:17)
--- NOTE | 2023-05-27 10:34 | Anesthesia-General Post-Op ---
MAC Patient Condition Mental Status/LOC: Same as Preop Cardiovascular: Satisfactory Nausea/Vomiting: Absent Respiratory: Satisfactory Pain: Controlled Complications: Absent Post Op Complications Complications None Follow Up Care/Instructions Patient Instructions None needed. Anesthesiology Discharge Order Discharge Order Patient is doing well, no complaints, stable vital signs, no apparent adverse anesthesia problems. No complications reported per nursing. ANA PARK CRNA May 27, 2023 10:34
--- NOTE | 2023-05-27 10:38 | Cardiac Procedure Note-CS/ASA ---
Pre-Procedure Note Pre-Op Procedure Note Date of Available H&P: May 22, 2023 Date H&P Reviewed: May 27, 2023 Time H&P Reviewed: 08:15 History & Physical: H&P Reviewed, No changes noted Moderate Sedation PreProcedure ASA Score 3 Airway Lungs Heart ASA score ASA 1: a normal healthy patient ASA 2: a patient with a mild systemic disease (mid diabetes, controlled hypertension, obesity ASA 3: a patient with a severe systemic disease that limits activity (angina, COPD, prior Myocardial infarction) ASA 4: a patient with an incapacitating disease that is a constant threat to life (CHF, renal failure) ASA 5: a moribund patient not expected to survive 24 hrs. (ruptured aneurysm) ASA 6: a declared brain- patient whose organs are being harvested. For emergent operations, add the letter E after the classification Mallampati Classification Grade 2 Sedation Plan Analgesia, Amnesia, Plan communicated to team members The patient is an appropriate candidate to undergo the planned procedure, sedation, and anesthesia. The patient immediately re-assessed prior to indication. ERIKA PARRA MD FACP FAC CCDS May 27, 2023 10:38
--- NOTE | 2023-05-27 16:56 | OPERATIVE REPORT ---
DATE OF SERVICE: 05/27/2023 PREOPERATIVE DIAGNOSIS: Atrial flutter. POSTOPERATIVE DIAGNOSIS: Sinus rhythm. PROCEDURE: External electrical cardioversion. The patient is a 67-year-old gentleman with paroxysmal atrial fibrillation, who underwent cardioversion after transesophageal echocardiography at [facility] in mid 03/24/2023. He has remained on oral anticoagulation without interruption. He was demonstrated to have recurrent atrial fibrillation/flutter in late March 2023. He has seen Dr. Jefferson an electrophysiology consultation. Repeat cardioversion has been advised. This was carried out today after having obtained informed consent. DESCRIPTION OF PROCEDURE: The nurse jack frame tender provided short-acting anesthesia, under which 120 joules of synchronized shock was delivered through external patches, which restored sinus rhythm. He tolerated the procedure well. Job ID: [id number] DocumentID: [id number] Dictated Date: 05/27/2023 10:30:33 Events Traffic Controller Date: 05/27/2023 16:54:00 Dictated By: ERIKA PARRA MD; MUNA; FACP; FACC;
== END 2023-05-27 11:00 | disposition home or self-care (01) ==
LOC: CATH 08:11
PROVIDERS: ATTEND Internal Medicine Cardiovascular Disease
DX: I48.92 Unspecified atrial flutter (principal); E66.9 Obesity, unspecified; I48.0 Paroxysmal atrial fibrillation; I25.10 Atherosclerotic heart disease of native coronary artery without angina pectoris; I25.5 Ischemic cardiomyopathy; R91.8 Other nonspecific abnormal finding of lung field; F17.210 Nicotine dependence, cigarettes, uncomplicated; Z68.27 Body mass index [BMI] 27.0-27.9, adult; Z95.4 Presence of other heart-valve replacement; Z79.01 Long term (current) use of anticoagulants
CPT/HCPCS: 36415; 80053; 80061; 85027; 85610; 85730; 87081; 92960; 93005

== ENCOUNTER → 2023-10-17 | Outpatient (CLI) | payer MEDICARE ==
[~2023-10-17] MED LIST changes: +DAPA10TA PO; +DIGO250T3 PO; +METF-478 PO; +NITR0.4T39 SL; +POTA-185 PO; -POTA10TA PO; +SEMA3TAB4 PO
== END ==
LOC: LAB FS 13:57
PROVIDERS: ATTEND Internal Medicine Cardiovascular Disease
DX: I48.91 Unspecified atrial fibrillation (principal)
CPT/HCPCS: 36415; 80151